=== PATIENT | male | born 1945 | race Two or more races ===

== ENCOUNTER 2024-05-18 16:36 | Inpatient (IN) | payer OTHER, MEDICAID ==
[~2024-05-18] VITALS: Ht 172.7 cm; Wt 65.6 kg
--- NOTE | 2024-05-18 17:20 | ED.PDOC ---
History of Present Illness HPI Comments This is a 78-year-old male who comes to the ED with chief complaint of generalized weakness. Patient is a poor historian as well as his nephew, no past medical history or surgical history. They state that the patient has been experiencing generalized weakness for the last three weeks, it has been worsening, it was associated with moderate to severe abdominal pain most prominent on the right upper quadrant, which radiates diffusely to all the other quadrants, it is colicky, on also associated with nausea, low appetite, poor fluid intake. Patient currently denies any chest pain, shortness of breath, dizziness, urinary symptoms, edema. Chief Complaint: General Weakness Time Seen by MD: 16:38 Reviewed Notes: Nurses Notes Allergies: Coded Allergies: NO KNOWN ALLERGIES (Unverified , 05/18/24) Information Source: Patient, Relative (Sibling) Mode of Arrival: Ambulatory Severity: Severe Timing: Weeks Duration: Since onset Past Medical History PAST MEDICAL HISTORY: Denies Surgical History: Denies all surgeries Family History Family History: Reviewed,noncontributory to illness Social History Smoker: Non-Smoker Alcohol: Denies ETOH Use Drugs: Denies Drug Use Lives In: Home Constitutional: reports: fatigue, malaise, weakness; denies: chills, diaphoresis, fever, sweats, others EENTM: denies: blurred vision, double vision, ear bleeding, ear discharge, ear drainage, ear pain, ear ringing, eye pain, eye redness, hearing loss, mouth pain, mouth swelling, nasal discharge, nose bleeding, nose congestion, nose pain, photophobia, tearing, throat pain, throat swelling, voice changes, others Respiratory: denies: cough, hemoptysis, orthopnea, SOB at rest, shortness of breath, SOB with excertion, stridor, wheezing, others Cardiovascular: denies: chest pain, dizzy spells, diaphoresis, Dyspnea on exertion, edema, irregular heart beat, left arm pain, lightheadedness, palpitations, PND, syncope, others Gastrointestinal: reports: abdomen distended, abdominal pain, nausea, poor appetite, poor fluid intake; denies: blood streaked bowels, constipated, diarrhea, dysphagia, difficulty swallowing, hematemesis, melena, rectal bleeding, rectal pain, vomiting, others Genitourinary: denies: burning, dysuria, flank pain, frequency, hematuria, incontinence, penile discharge, penile sore, pain, testicle pain, testicle swelling, urgency, others Neurological: reports: weakness; denies: dizziness, fainting, headache, left sided numbness, left sided weakness, numbness, paresthesia, pre-existing deficit, right sided numbness, right sided weakness, seizure, speech problems, tingling, tremors, others Musculoskeletal: denies: back pain, gout, joint pain, joint swelling, muscle pain, muscle stiffness, neck pain, others Integumetry: reports: dryness; denies: bruises, change in color, change in hair/nails, laceration, lesions, lumps, rash, wounds, others Allergic/Immunocompromised: denies: Difficulty Healing, Frequent Infections, Hives, Itching, others Hematologic/Lymphatic: denies: anemia, blood clots, easy bleeding, easy bruising, swollen glands, others Endocrine: denies: excessive hunger, excessive sweating, excessive thirst, excessive urination, flushing, intolerance to cold, intolerance to heat, unexplained weight gain, unexplained weight loss, others Psychiatric: denies: anxiety, bipolar disorder, depression, hopeless, panic disorder, schizophrenia, sleepless, suicidal, others Physical Exam General Appearance: Normal, Severe Distress HEENT: Normal ENT Inspection, Pharynx Normal, TMs Normal Neck: Full Range of Motion, Non-Tender, Normal, Normal Inspection Respiratory: Chest Non-Tender, Lungs Clear, No Accessory Muscle Use, No Respiratory Distress, Normal Breath Sounds Cardiovascular: No Edema, No JVD, No Murmur, No Gallop, Normal Peripheral Pulses, Regular Rate/Rhythm Breast Exam: Deferred Gastrointestinal: Abnormal Bowel Sounds, Diffuse, Distended, Rebound, RUQ, Tenderness Genitalia: Deferred Pelvic: Deferred Rectal: Deferred Extremities: No calf tenderness, Normal capillary refill, Normal inspection, Normal range of motion, Non-tender, No pedal edema Neurologic: Disoriented, No Motor Deficits Cerebellar Function: NOT DONE Reflexes: NOT DONE Skin: Dry, Pallor, Warm Lymphatic: No Adenopathy Was a procedure done? Was a procedure done?: No Differential Dx Considerations may include: Sepsis, UTI, cholecystitis, diverticular disease, gastritis, PUD, gastroenteritis, electrolyte imbalance, hypovolemia X-Ray, Labs, Meds, VS Vital Signs Date Time Temp Pulse Resp B/P (MAP) Pulse Ox O2 Delivery O2 Flow Rate FiO2 05/18/24 18:10 75 20 96 Nasal Cannula* 2 28 05/18/24 17:40 97.1 72 20 117/55 (75) 97 97.1 05/18/24 17:17 67 05/18/24 17:00 82 05/18/24 16:50 98.7 82 20 90/50 (63) 95 Lab Test 05/18/24 18:54 05/18/24 17:31 05/18/24 16:44 Range/Units Hepatitis A IgM Antibody Pending Hepatitis B Surface Antigen Pending Hepatitis B Core IgM Antibody Pending Hepatitis C Antibody Pending White Blood Count 9.3 4.4-10.8 10^3/uL Red Blood Count 5.80 4.5-5.90 10^6/uL Hemoglobin 17.2 13.5-17.5 g/dL Hematocrit 51.1 41.0-53.0 % Mean Corpuscular Volume 88.1 80.0-100.0 fL Mean Corpuscular Hemoglobin 29.7 28.0-32.0 pg Mean Corpuscular Hemoglobin Concent 33.8 32.0-36.0 g/dL Red Cell Distribution Width 21.5 H 11.8-14.3 % Platelet Count 122 L 140-450 10^3/uL Mean Platelet Volume 8.2 6.9-10.8 fL Neutrophils (%) (Auto) 37.0-80.0 % Lymphocytes (%) (Auto) 10.0-50.0 % Monocytes (%) (Auto) 0.0-12.0 % Basophils (%) (Auto) 0.0-2.0 % Neutrophils # (Auto) 1.6-8.6 10 ^3/uL Lymphocytes # (Auto) 0.4-5.4 10 ^3/uL Monocytes # (Auto) 0-1.3 10 ^3/uL Differential Total Cells Counted 100.0 100 Neutrophils % (Manual) 82 H 37.0-80.0 Band Neutrophils % (Manual) 4 Lymphocytes % (Manual) 9 L 10.0-50.0 Monocytes % (Manual) 4 0-12 Eosinophils % (Manual) 0 0-7 Basophils % (Manual) 0 0.0-2.0 Metamyelocytes % (manual) 1 Myelocytes % (Manual) 0 Promyelocytes % (Manual) 0 Blast Cells % (Manual) 0 Nucleated Red Blood Cells 2.0 % Reactive Lymphocytes 0 Platelet Estimate Decreased Anisocytosis (manual) Slight Sodium Level 135 L 136-145 mmol/L Potassium Level 5.0 3.5-5.1 mmol/L Chloride Level 101 98-107 mmol/L Carbon Dioxide Level 23 20-31 mmol/L Anion Gap 11 5-15 Blood Urea Nitrogen 39 H 9-23 mg/dL Creatinine 0.95 0.700-1.30 mg/dL Glomerular Filtration Rate Calc 82 >90 mL/min BUN/Creatinine Ratio 41.1 H 10.0-20.0 Serum Glucose 87 74-106 mg/dL Lactic Acid Level 4.5 *H 0.4-2.0 mmol/L Calcium Level 10.7 H 8.7-10.4 mg/dL Magnesium Level 2.6 1.6-2.6 mg/dL Total Bilirubin 12.7 H 0.2-1.0 mg/dL Direct Bilirubin Pending Aspartate Amino Transferase (AST) 686 H 13-40 U/L Alanine Aminotransferase (ALT) 256 H 7-40 U/L Alkaline Phosphatase 925 H 46-116 U/L Troponin I High Sensitivity 20 </=54 ng/L B-Type Natriuretic Peptide 70.04 0-100 pg/mL Total Protein 6.7 5.7-8.2 g/dL Albumin 3.2 3.2-4.8 g/dL POC Glucose 90 70-106 mg/dl Current Medications Medications (Trade) Dose Ordered Sig/Alessia Route Start Time Stop Time Status Last Admin Ondansetron HCl (Zofran) 4 mg ONCE ONCE IV 05/18/24 17:15 05/18/24 17:16 DC 05/18/24 17:29 Sodium Chloride 1,000 ml @ 150 mls/hr Q6H40M ONCE IV 05/18/24 17:15 05/18/24 23:54 05/18/24 17:29 Pantoprazole Sodium (Protonix) 40 mg ONCE ONCE IV 05/18/24 17:15 05/18/24 17:16 DC 05/18/24 17:29 Sodium Chloride 1,000 ml @ 1,000 mls/hr Q1H ONCE IV 05/18/24 18:45 05/18/24 19:44 05/18/24 18:49 Piperacillin Sod/ Tazobactam Sod 100 ml @ 100 mls/hr ONCE ONCE IV 05/18/24 18:45 05/18/24 19:44 05/18/24 18:58 On my initial examination, patient appears in severe distress due to abdominal pain, he was sitting in a wheelchair, appeared lightheaded, his blood pressure was on the lower side at 96/55 with a map of 65, heart rate was 82, temperature was 98.7, and he is saturating at 95% on room air. Patient continued to complain about severe abdominal pain and nausea. We will ordered CBC, CMP, magnesium, UA, lactic acid, troponins, EKG, chest x-ray, CT of the abdomen, we will also prescribed IV fluids as NS 30 mL/kg bolus, Zofran IV, Protonix IV, we will continue to reassess. Patient's CT abdomen revealed numerous hypodense lesions in the liver, possible metastasis, he also had hyperbilirubinemia of 13, lactic acidosis, transaminitis, order liver ultrasound, IV fluid bolus, Zosyn IV, patient was admitted for further management. Images Reviewed?: Images reviewed and evaluated by me Time of 1ST Reevaluation: 17:10 Reevaluation 1ST: Unchanged Patient Education/Counseling: Diagnosis, Treatment Family Education/Counseling: Diagnosis, Treatment Departure 1 Departure Time of Disposition: 19:19 Impression: Primary Impression: Liver disease Additional Impressions: Liver masses Hypovolemia Lactic acidosis Sepsis Disposition: 09 ADMITTED INPATIENT Condition: Guarded Critical Care Note Critical Care Time?: No Stability Stability form required: No Heart Score Heart Score: Heart Score Response (Comments) Value History Moderate Suspicious 1 EKG Repolarization Disturb 1 Age >65 2 Risk Factors No known risk factors 0 Troponin Normal limit 0 Total 4 DEBRA GARCIA RESIDENT May 18, 2024 17:20
[2024-05-18] MEDS: ONDANSETRON HCL 4 MG/2 ML VIAL IV ONE (17:29)
[2024-05-18] MEDS: PANTOPRAZOLE 40 MG/10 ML VIAL INJ IV ONE (17:29)
[2024-05-18] MEDS: SODIUM CHLORIDE 0.9% 1,000 ML IV ONE ×2 (17:29→18:49)
--- NOTE | 2024-05-18 17:48 | DVH ---
CHEST RADIOGRAPH Indication:sob Technique: Single frontal view of the chest was obtained Comparison: None FINDINGS: Lines and Tubes: None Lungs: No focal consolidation. Pleura: Trace left-sided pleural effusion. No pneumothorax. Cardiomediastinal contours: Unremarkable Bones: No acute osseous abnormality. Surgical clips projected over the left hilum. IMPRESSION: No acute cardiopulmonary disease. Trace left-sided pleural effusion.
[2024-05-18 18:10] VITALS: PULSE 75; RESP 20; O2SAT 96
[2024-05-18 18:12] LABS: Hematocrit 51.1 % (41.0-53.0); Hemoglobin 17.2 g/dL (13.5-17.5); Mean Corpuscular Hemoglobin 29.7 pg (28.0-32.0); Mean Corpuscular Hgb Conc. 33.8 g/dL (32.0-36.0); Mean Corpuscular Volume 88.1 fL (80.0-100.0); Platelet Count (auto) 122 10^3/uL (140-450); White Blood Cell 9.3 10^3/uL (4.4-10.8)
[2024-05-18 18:17] LABS: Alanine Aminotransferase 256 U/L (7-40); Albumin 3.2 g/dL (3.2-4.8); Alkaline Phosphatase 925 U/L (46-116); Anion Gap 11 (5-15); Aspartate Aminotransferase 686 U/L (13-40); Bilirubin, Total 12.7 mg/dL (0.2-1.0); Blood Urea Nitrogen 39 mg/dL (9-23); Calcium 10.7 mg/dL (8.7-10.4); Carbon Dioxide 23 mmol/L (20-31); Chloride 101 mmol/L (98-107); Glucose 87 mg/dL (74-106); Magnesium 2.6 mg/dL (1.6-2.6); Red Cell Distribution Width 21.5 % (11.8-14.3); Sodium 135 mmol/L (136-145)
[2024-05-18 18:18] LABS: Basophils % (manual) 0 (0.0-2.0); Blast Cells 0; Eosinophils % (manual) 0 (0-7); Myelocytes % 0; Promyelocytes % 0; Reactive Lymphocytes 0; Total Protein 6.7 g/dL (5.7-8.2)
[2024-05-18 18:23] LABS: BUN/Creatinine Ratio 41.1 (10.0-20.0)
[2024-05-18 18:31] LABS: Lactic Acid w/Reflex 4.5 mmol/L (0.4-2.0)
--- NOTE | 2024-05-18 18:42 | DVH ---
Exam: CT CT AB PEL WO CON-NO ORAL OR IV History: abdominal pain, RUQ pain, diffuse tenderness Comparison Study: None available at time of dictation. Technique: Multidetector spiral CT of the abdomen was performed from lung bases to pubic symphysis. Imaging was performed without IV contrast. Axial, coronal and sagittal multiplanar reformats were ob tained from the axial data set by the technologist. Radiation Dose : 1. Abdomen/Pelvis: CTDIvol 7 mGy, DLP 384 mGy*cm. Findings: Evaluation of solid organs is limited due to lack of intravenous contrast use. Lung Bases: No acute or significant lung base finding. Normal heart size. No pleural or pericardial effusion. Liver: Enlarged liver measuring 20 cm with several scattered hypoattenuation. Gallbladder and Biliary Tree: Unremarkable Spleen: Unremarkable Pancreas: The pancreas is grossly normal in appearance. Adrenal Glands: Unremarkable Kidneys: Kidneys are grossly normal without calculi or hydronephrosis. 1 cm hypodensity in the left k idney. Bladder: Grossly unremarkable for degree of distention. Bowel: The stomach is grossly normal in appearance. Small bowel and colon are normal in caliber and d istribution. The appendix is not visualized; however, no secondary findings of acute appendicitis id entified. Ascites: Absent Lymphadenopathy: No mesenteric, retroperitoneal or periportal lymphadenopathy. Abdominal Wall and Mesentery: Unremarkable. Vasculature: The visualized abdominal aorta is normal in size and caliber. Evaluation of abdominal a nd pelvic vessels is limited due to lack of intravenous contrast. Heavy vascular calcification. Pelvic Organs: Mild prostatomegaly. Musculoskeletal: No aggressive focal bony lesions, acute fractures or dislocation. IMPRESSION: Limited evaluation without IV contrast. Innumerable scattered hypodense lesions throughout the liver concerning for metastatic disease of unclear etiology. Consider further evaluation with PET-CT. Corre lation with history is also recommended. 1 cm left renal hypodensity.
[2024-05-18] MEDS: PIPERACILLIN-TAZOB 3.375GM 100 ML IV ONE (18:58)
[2024-05-18 19:09] LABS: Band Neutrophils % (manual) 4; Lymphocytes % (manual) 9 (10.0-50.0)
[2024-05-18 19:10] LABS: Metamyelocytes % 1; Monocytes % (manual) 4 (0-12); Platelet Estimate Decreased
[2024-05-18 19:11] LABS: Anisocytosis Slight
[2024-05-18 19:30] VITALS: O2SAT 95
[2024-05-18] MEDS ORDERED: ONDANSETRON HCL 4 MG/2 ML VIAL IV PRN (20:15)
[2024-05-18] MEDS ORDERED: ACETAMINOPHEN 325 MG TAB PO PRN (20:15)
--- NOTE | 2024-05-18 20:34 | DVH ---
INDICATION: transaminitis TECHNIQUE: Multiple real-time sonographic images were obtained of the right upper quadrant. COMPARISON: None FINDINGS: Heterogeneous echotexture of the liver. No obvious focal lesions . Hepatopetal flow is note d . The liver measures 20 cm craniocaudal. no intrahepatic or extrahepatic ductal dilatation. The co mmon duct measures 0.8 cm. The gallbladder is without evidence of stone .. There is biliary sludge The gallbladder wall measur es 1.0 cm and is within normal limits. The right kidney measures 4 cm. The right kidney is normal in contour, size, and shape. The echogen icity is normal. There is no hydronephrosis. The pancreas is not well visualized due to overlying bowel gas. IMPRESSION: Heterogeneous liver echotexture which may be from hepatic steatosis versus medical liver disease. Dis tended gallbladder demonstrating layering sludge and significant wall thickening. This can be seen wi th medical hepatic disease such as hepatitis. Clinical correlation is advised.
[2024-05-18 21:05] LABS: Urine Bacteria None Seen /hpf (None Seen)
[2024-05-18 21:12] LABS: INR 1.35 (0.9-1.15)
[2024-05-18 21:33] LABS: Amphetamine Screen, Urine Neg (NEGATIVE); Barbiturate Scree,Urine Neg (NEGATIVE); Benzodiazephine Screen, Urine Neg (NEGATIVE); Cocaine Screen, Urine Neg (NEGATIVE)
[2024-05-18 21:34] LABS: Cannabinoid Screen, Urine Neg (NEGATIVE); Opiate Scree,Urine Neg (NEGATIVE); Phencyclidine Screen, Urine Neg (NEGATIVE)
[2024-05-18 21:55] LABS: Urine Blood Negative /uL (Negative); Urine Clarity Turbid (Clear); Urine Color Dark-Yellow (Yellow); Urine Mucus FEW (None Seen); Urine Protein, UAD TRACE (Negative); Urine Specific Gravity 1.022 (1.001-1.035); Urine Urobilinogen 2 mg/dL (Negative); Urine WBC 1 /hpf (0 - 3); Urine pH 5.5 (5.0-9.0)
[2024-05-19] VITALS (8 sets, daily range): BP systolic 101–149; BP diastolic 54–74; PULSE 60–86; RESP 18–19; TEMP 97.4–97.8; O2SAT 96–99
--- NOTE | 2024-05-19 00:52 | DVHHP2 ---
Admitting Diagnosis: Liver Lesions, Transaminitis, elevated bilirubin History of Present Illness History Source: RN Notes, Notes Exam Limitations: Other (poor historian) HPI Mr. Curtis Castañeda is a 78-year-old male who presents with a chief complaint of generalized weakness. Patient is a poor historian as well as his nephew, no past medical history or surgical history. They state that the patient has been experiencing generalized weakness for the last three weeks, it has been worsening, it was associated with moderate to severe abdominal pain most prominent on the right upper quadrant, which radiates diffusely to all the other quadrants, it is colicky, on also associated with nausea, low appetite, poor fluid intake. Patient CT abdomen and pelvis without contrast resulted: Limited evaluation without IV contrast. Innumerable scattered hypodense lesions throughout the liver concerning for metastatic disease of unclear etiology. Consider further evaluation with PET-CT. Correlation with history is also recommended. 1 cm left renal hypodensity. Patient admitted for further evaluation. Home Meds Reported Medications Atorvastatin Calcium (Lipitor) 20 Mg Tab, 1 TAB PO DAILY, #90 TAB 1 Refill 05/19/24 Levothyroxine Sodium (Levothyroxine Sodium) 125 Mcg Tab, 125 MCG PO QAM for 30 Days, MCG 05/19/24 Past Medical History Cardiac: No pertinent Hx Pulmonary: No pertinent Hx Central Nervous System: No pertinent Hx GI: No pertinent Hx Hemotology/Oncology: No pertinent Hx Hepatobiliary: No pertinent Hx Psychiatric: No pertinent Hx Musculoskeletal: No pertinent Hx Rheumotologic: No pertinent Hx Infectious Disease: No peritnent Hx ENT: No pertinent Hx Renal/: No pertinent Hx Endocrine: No pertinent Hx Dermatology: No pertinent Hx Others none reported, poor historian Past Surgical History: No pertinent Hx Smoker: <1 pack per day Alocohol: None Drugs: None Lives with: With family Domestic Violence: Neg Review of Systems Constitutional: Weakness (generalized), Other (poor appetite ) Ears, Nose, & Throat: No symptom reported Eyes: No symptom reported Pulmonary/Respiratory: No symptom reported Cardiovascular: No symptom reported Gastrointestinal: No symptom reported Genitourinary: No symptom reported Musculoskeletal: No symptom reported Skin: No symptom reported Psychiatric: No symptom reported Endocrine: No symptom reported Hemotologic/Lymphatic: No symptom reported H&P Exam Vital Signs Vital Signs Date Time Temp Pulse Resp B/P (MAP) Pulse Ox O2 Delivery O2 Flow Rate FiO2 05/18/24 21:00 78 18 112/56 (74) 97 05/18/24 19:30 Nasal Cannula* 2 28 05/18/24 17:40 97.1 97.1 General Appeara: Normal Appearance, Thin Head Exam: Normal inspection Neck Exam: Normal inspection, Non-tender, Normal alignment Eye Exam: bilateral eye Normal inspection, bilateral eye PERRL, bilateral eye EOMI Ear Exam: bilateral ear Auricle normal Nasal Exam: Normal inspection Mouth: Normal Inspection Pulmonary/Respiratory: Normal inspection, Normal breath sounds, Chest non- tender, Lungs clear Cardiovascular/Chest: Normal inspection, Regular rate, Normal Rhythm Peripheral Pulses: 2+ dorsalis pedis (R), 2+ dorsalis pedis (L), 2+ Radial (R), 2+ Radial (L) Abdominal Exam: Normal bowel sounds, Soft, No tenderness Rectal 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 Exam: Normal hearing, Normal speech, PERRL Neuro/Mental St: Alert, Oriented Appearance: Appropriate appearance, Appropriate insight Eye contact/ Speech: Cooperative, Good eye contact, Normal speech, Avoids eye contact Thoughts/Psych: Normal thought pattern Skin Exam: Normal inspection, Normal color, Warm/dry Labs/Xrays Labs Test 05/18/24 21:31 05/18/24 21:02 05/18/24 19:54 05/18/24 17:31 Range/Units Troponin I High Sensitivity 22 </=54 ng/L Urine Color Dark-yellow Yellow Urine Clarity Turbid H Clear Urine pH 5.5 5.0-9.0 Urine Specific [place] 1.022 1.001-1.035 Urine Protein Trace H Negative Urine Ketones Trace Negative Urine Blood Negative Negative /uL Urine Nitrite Negative Negative Urine Bilirubin 2+ Negative Urine Urobilinogen 2 H Negative mg/dL Urine Leukocyte Esterase Negative Negative /uL Urine RBC 1 0 - 3 /hpf Urine WBC 1 0 - 3 /hpf Urine Squamous Epithelial Cells None seen <5 /hpf Urine Bacteria None seen None Seen /hpf Urine Mucus Few None Seen Urine Glucose Normal Normal mg/dL Urine Opiates Screen Neg NEGATIVE Urine Fentanyl Screen Neg NEGATIVE Urine Barbiturates Screen Neg NEGATIVE Urine Phencyclidine Screen Neg NEGATIVE Urine Amphetamines Screen Neg NEGATIVE Urine Benzodiazepines Screen Neg NEGATIVE Urine Cocaine Screen Neg NEGATIVE Urine Cannabinoids Screen Neg NEGATIVE Lactic Acid Level 4.0 *H 0.4-2.0 mmol/L White Blood Count 9.3 4.4-10.8 10^3/uL Red Blood Count 5.80 4.5-5.90 10^6/uL Hemoglobin 17.2 13.5-17.5 g/dL Hematocrit 51.1 41.0-53.0 % Mean Corpuscular Volume 88.1 80.0-100.0 fL Mean Corpuscular Hemoglobin 29.7 28.0-32.0 pg Mean Corpuscular Hemoglobin Concent 33.8 32.0-36.0 g/dL Red Cell Distribution Width 21.5 H 11.8-14.3 % Platelet Count 122 L 140-450 10^3/uL Mean Platelet Volume 8.2 6.9-10.8 fL Neutrophils (%) (Auto) 37.0-80.0 % Lymphocytes (%) (Auto) 10.0-50.0 % Monocytes (%) (Auto) 0.0-12.0 % Basophils (%) (Auto) 0.0-2.0 % Neutrophils # (Auto) 1.6-8.6 10 ^3/uL Lymphocytes # (Auto) 0.4-5.4 10 ^3/uL Monocytes # (Auto) 0-1.3 10 ^3/uL Differential Total Cells Counted 100.0 100 Neutrophils % (Manual) 82 H 37.0-80.0 Band Neutrophils % (Manual) 4 Lymphocytes % (Manual) 9 L 10.0-50.0 Monocytes % (Manual) 4 0-12 Eosinophils % (Manual) 0 0-7 Basophils % (Manual) 0 0.0-2.0 Metamyelocytes % (manual) 1 Myelocytes % (Manual) 0 Promyelocytes % (Manual) 0 Blast Cells % (Manual) 0 Nucleated Red Blood Cells 2.0 % Reactive Lymphocytes 0 Platelet Estimate Decreased Anisocytosis (manual) Slight Prothrombin Time 14.0 H 9.3-11.8 sec Prothrombin Time INR 1.35 H 0.9-1.15 Sodium Level 135 L 136-145 mmol/L Potassium Level 5.0 3.5-5.1 mmol/L Chloride Level 101 98-107 mmol/L Carbon Dioxide Level 23 20-31 mmol/L Anion Gap 11 5-15 Blood Urea Nitrogen 39 H 9-23 mg/dL Creatinine 0.95 0.700-1.30 mg/dL Glomerular Filtration Rate Calc 82 >90 mL/min BUN/Creatinine Ratio 41.1 H 10.0-20.0 Serum Glucose 87 74-106 mg/dL Calcium Level 10.7 H 8.7-10.4 mg/dL Magnesium Level 2.6 1.6-2.6 mg/dL Total Bilirubin 12.7 H 0.2-1.0 mg/dL Direct Bilirubin 9.0 H <0.3 mg/dL Aspartate Amino Transferase (AST) 686 H 13-40 U/L Alanine Aminotransferase (ALT) 256 H 7-40 U/L Alkaline Phosphatase 925 H 46-116 U/L B-Type Natriuretic Peptide 70.04 0-100 pg/mL Total Protein 6.7 5.7-8.2 g/dL Albumin 3.2 3.2-4.8 g/dL Test 05/18/24 16:44 Range/Units POC Glucose 90 70-106 mg/dl Assessment/Plan Problem List: (1) Liver masses (2) Transaminitis (3) Liver disease (4) Lactic acidosis Plan 78 yo male with no reported medical history presents with generalized weakness, abdominal pain, poor appetite, nausea. Patient found to have 1. Liver masses 2. acute transaminitis 3. hyperbilirubinemia 4. Lactic acidosis Admit Telemetry GI consultation Oncology consultation Interventional Radiology consultation liver biopsy MRCP IV fluids NS GI ppx Protonix DVT ppx SCD's Blood cultures x2, urine culture Lactic acid level , CMP, CBC Discussed all above with patient who verbalizes agreement and understanding of care plan. All questions were answered. Discussed assessment and care plan with supervising MD Dr. De La Vega. Plan discussed with: Patient, Other Code Visit Code Visit Total Time (mins): 45 Additional Comments Additional Comments Additional Comments Patient's chart is reviewed and discussed with the nurse practitioner. I agree with the nurse practitioner's evaluation, documentation, assessment and care plan as outlined. GLYNN GALE May 19, 2024 00:52 ARABELLA NOE MD May 19, 2024 12:12
[2024-05-19] MEDS: SODIUM CHLORIDE 0.9% 1,000 ML IV SCH (01:03)
[2024-05-19] MEDS: HYDROcodone-ACET 5/325MG TAB PO PRN (01:17)
[2024-05-19] MEDS ORDERED: LEVO125T7 PO (03:48)
[2024-05-19] MEDS ORDERED: ATOR20TA PO (03:48)
[2024-05-19 05:46] LABS: Hematocrit 47.1 % (41.0-53.0); Hemoglobin 15.5 g/dL (13.5-17.5); Mean Corpuscular Hemoglobin 29.7 pg (28.0-32.0); Platelet Count (auto) 100 10^3/uL (140-450); Red Blood Cells 5.23 10^6/uL (4.5-5.90); White Blood Cell 9.6 10^3/uL (4.4-10.8)
[2024-05-19 06:00] LABS: Red Cell Distribution Width 22.1 % (11.8-14.3)
[2024-05-19 06:02] LABS: Basophils % (manual) 0 (0.0-2.0); Blast Cells 0; Eosinophils % (manual) 0 (0-7); Metamyelocytes % 0; Myelocytes % 0; Promyelocytes % 0; Reactive Lymphocytes 0
[2024-05-19 06:06] LABS: Alanine Aminotransferase 215 U/L (7-40); Albumin 2.8 g/dL (3.2-4.8); Alkaline Phosphatase 747 U/L (46-116); Anion Gap 8 (5-15); Aspartate Aminotransferase 594 U/L (13-40); Bilirubin, Total 10.9 mg/dL (0.2-1.0); Blood Urea Nitrogen 30 mg/dL (9-23); Calcium 9.7 mg/dL (8.7-10.4); Carbon Dioxide 24 mmol/L (20-31); Chloride 104 mmol/L (98-107); Glucose 87 mg/dL (74-106); Potassium 5.4 mmol/L (3.5-5.1); Sodium 136 mmol/L (136-145); Total Protein 6.1 g/dL (5.7-8.2)
[2024-05-19 06:22] LABS: BUN/Creatinine Ratio 30.3 (10.0-20.0)
[2024-05-19 08:36] LABS: Band Neutrophils % (manual) 2; Lymphocytes % (manual) 13 (10.0-50.0); Monocytes % (manual) 8 (0-12)
[2024-05-19 08:37] LABS: Platelet Estimate Decreased
--- NOTE | 2024-05-19 09:09 | ECG ---
[facility] Test Date: 2024-05-18 Test Time: 17:00:37 Pat Name: KEATON ARIZA Department: ER Room: [facility]0T B Gender: M Baggage Handler: SUMMER : 1945 Requested By: DEBRA GAR Order Number: [id number] Reading MD: Eric Evans Measurements Intervals [place] Rate: 82 P: 68 ME: 149 QRS: 0 QRSD: 135 T: 89 QT: 402 QTc: 470 Interpretive Statements Sinus rhythm IVCD, consider atypical RBBB Baseline wander in lead(s) V2 Electronically Signed On 05-20-2024 14:55:43 PDT by Eric Evans Please click the below link to view image of tracing.
[2024-05-19] MEDS: MIDAZOLAM HCL 2MG/2ML 2ml VIAL (1mg/ml) IV ONE (09:15)
[2024-05-19] MEDS: fentaNYL CITRATE 100 MCG/2 ML VL IV ONE (09:15)
[2024-05-19] MEDS: LIDOCAINE 2%HCL (LOCAL ANESTH.) INJ 10ml MDV ONE (09:28)
[2024-05-19] MEDS: GELATIN 1 SPONGE SIZE 50 TOP ONE (09:31)
--- NOTE | 2024-05-19 09:34 | DVHINCON2 ---
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 He states that he had a lung cancer surgery around a year back from the left lung followed by no radiation or chemotherapy. He has a history of smoking a pack of cigarettes a day for many years. No alcohol or drugs. He is admitted with generalized weakness and has right upper abdominal pains with some feeling of nausea. No vomiting. Poor appetite. Has lost [address] of the abdomen pelvis without contrast showed innumerable scattered hypodense lesions throughout the liver concerning for metastatic disease of unclear etiology. Abdominal ultrasound showed hepatic steatosis/liver disease, distended gallbladder Ms. Significant wall thickening and sludge for white count 9.6 hemoglobin 15.5 platelets [id number] BUN 13 creatinine 0.9 total bili 10.9 direct bili nine alkaline phosphatase 747 AST 0.94 ALT 215 total protein 6.1 albumin 2.8 PT INR 1.35 He is waiting for the liver biopsy He is moving his bowels okay. No urinary discomfort. No fevers night sweats bruising or bleeding. Past Medical History Lung cancer Hypothyroidism Family History He thinks one of his sisters might have had some cancer Social History History of smoking a pack a day for many years No alcohol or drugs He lives with his nephew Allergies: Coded Allergies: NO KNOWN ALLERGIES (Unverified , 05/18/24) Home Meds Reported Medications Atorvastatin Calcium (Lipitor) 20 Mg Tab, 1 TAB PO DAILY, #90 TAB 1 Refill 05/19/24 Levothyroxine Sodium (Levothyroxine Sodium) 125 Mcg Tab, 125 MCG PO QAM for 30 Days, MCG 05/19/24 Current Medications Current Medications Medications (Trade) Dose Ordered Sig/Alessia Route PRN Reason Start Time Stop Time Status Last Admin Sodium Chloride 1,000 ml @ 75 mls/hr [id number] IV 05/18/24 20:15 05/19/24 01:03 Acetaminophen (Tylenol Tablet) 650 mg Q6HPRN PRN PO TEMP GREATER THAN 100.4 05/18/24 20:15 Acetaminophen/ Hydrocodone Bitart ([place] 5/325MG Tab) 1 tab Q6HPRN PRN PO PAIN SCALE 1 THRU 6 05/18/24 20:15 05/19/24 01:17 Morphine Sulfate 2 mg Q6HPRN PRN IV SEVERE PAIN (7-10 PAIN SCALE) 05/18/24 20:15 Ondansetron HCl (Zofran) 4 mg Q6HPRN PRN IV NAUSEA / VOMITING 05/18/24 20:15 Pantoprazole Sodium (Protonix) 40 mg DAILY IV 05/19/24 10:00 Vital Signs Vital Signs Date Time Temp Pulse Resp B/P (MAP) Pulse Ox O2 Delivery O2 Flow Rate FiO2 05/19/24 08:36 97.6 63 18 106/54 (71) 99 97.6 05/19/24 02:09 Nasal Cannula* 3 32 Physical Exam Moderately built and nourished, in no acute distress, alert and has some o rientation. The patient is jaundiced Head and neck: Unremarkable for any masses or neck nodes. No conjunctival or mucosal hemorrhage Lungs: Clear Cardiovascular: S1-S2 heard well Abdomen: No organomegaly, or ascites. Bowel sounds are present. Sensitive to touch in the right upper quadrant of the abdomen Extremities: No clubbing edema cyanosis or calf tenderness. Skin: Unremarkable for petechia purpura ecchymosis Lymphadenopathy: None Neurological exam: No focal deficit Labs/Diagnostic Data Labs Test 05/19/24 04:53 05/18/24 21:31 05/18/24 21:02 05/18/24 19:54 Range/Units White Blood Count 9.6 4.4-10.8 10^3/uL Red Blood Count 5.23 4.5-5.90 10^6/uL Hemoglobin 15.5 13.5-17.5 g/dL Hematocrit 47.1 41.0-53.0 % Mean Corpuscular Volume 90.0 80.0-100.0 fL Mean Corpuscular Hemoglobin 29.7 28.0-32.0 pg Mean Corpuscular Hemoglobin Concent 33.0 32.0-36.0 g/dL Red Cell Distribution Width 22.1 H 11.8-14.3 % Platelet Count 100 L 140-450 10^3/uL Mean Platelet Volume 7.8 6.9-10.8 fL Neutrophils (%) (Auto) 37.0-80.0 % Lymphocytes (%) (Auto) 10.0-50.0 % Monocytes (%) (Auto) 0.0-12.0 % Basophils (%) (Auto) 0.0-2.0 % Neutrophils # (Auto) 1.6-8.6 10 ^3/uL Lymphocytes # (Auto) 0.4-5.4 10 ^3/uL Monocytes # (Auto) 0-1.3 10 ^3/uL Differential Total Cells Counted 100.0 100 Neutrophils % (Manual) 77 37.0-80.0 Band Neutrophils % (Manual) 2 Lymphocytes % (Manual) 13 10.0-50.0 Monocytes % (Manual) 8 0-12 Eosinophils % (Manual) 0 0-7 Basophils % (Manual) 0 0.0-2.0 Metamyelocytes % (manual) 0 Myelocytes % (Manual) 0 Promyelocytes % (Manual) 0 Blast Cells % (Manual) 0 Reactive Lymphocytes 0 Platelet Estimate Decreased Sodium Level 136 136-145 mmol/L Potassium Level 5.4 H 3.5-5.1 mmol/L Chloride Level 104 98-107 mmol/L Carbon Dioxide Level 24 20-31 mmol/L Anion Gap 8 5-15 Blood Urea Nitrogen 30 H 9-23 mg/dL Creatinine 0.99 0.700-1.30 mg/dL Glomerular Filtration Rate Calc 78 >90 mL/min BUN/Creatinine Ratio 30.3 H 10.0-20.0 Serum Glucose 87 74-106 mg/dL Lactic Acid Level 3.0 *H 0.4-2.0 mmol/L Calcium Level 9.7 8.7-10.4 mg/dL Total Bilirubin 10.9 H 0.2-1.0 mg/dL Aspartate Amino Transferase (AST) 594 H 13-40 U/L Alanine Aminotransferase (ALT) 215 H 7-40 U/L Alkaline Phosphatase 747 H 46-116 U/L Total Protein 6.1 5.7-8.2 g/dL Albumin 2.8 L 3.2-4.8 g/dL Troponin I High Sensitivity 22 </=54 ng/L Urine Color Dark-yellow Yellow Urine Clarity Turbid H Clear Urine pH 5.5 5.0-9.0 Urine Specific [place] 1.022 1.001-1.035 Urine Protein Trace H Negative Urine Ketones Trace Negative Urine Blood Negative Negative /uL Urine Nitrite Negative Negative Urine Bilirubin 2+ Negative Urine Urobilinogen 2 H Negative mg/dL Urine Leukocyte Esterase Negative Negative /uL Urine RBC 1 0 - 3 /hpf Urine WBC 1 0 - 3 /hpf Urine Squamous Epithelial Cells None seen <5 /hpf Urine Bacteria None seen None Seen /hpf Urine Mucus Few None Seen Urine Glucose Normal Normal mg/dL Urine Opiates Screen Neg NEGATIVE Urine Fentanyl Screen Neg NEGATIVE Urine Barbiturates Screen Neg NEGATIVE Urine Phencyclidine Screen Neg NEGATIVE Urine Amphetamines Screen Neg NEGATIVE Urine Benzodiazepines Screen Neg NEGATIVE Urine Cocaine Screen Neg NEGATIVE Urine Cannabinoids Screen Neg NEGATIVE Test 05/18/24 17:31 05/18/24 16:44 Range/Units Nucleated Red Blood Cells 2.0 % Anisocytosis (manual) Slight Prothrombin Time 14.0 H 9.3-11.8 sec Prothrombin Time INR 1.35 H 0.9-1.15 Magnesium Level 2.6 1.6-2.6 mg/dL Direct Bilirubin 9.0 H <0.3 mg/dL B-Type Natriuretic Peptide 70.04 0-100 pg/mL POC Glucose 90 70-106 mg/dl Assessment 1. Multiple lesions in the liver with hepatic insufficiency with total bili and direct bilirubin high indicating obstructive hepatopathy also. Rule out metastatic disease. The patient does give a history of lung cancer and had surgery in the left lung sometime back without any adjuvant radiation or chemotherapy. (the patient is a poor historian) 2. Hypothyroidism Plan/Recommendation Will do a CT of the chest with contrast MRI of the abdomen and pelvis with and without contrast CEA, CA 19-9, alpha-fetoprotein IR to do the liver biopsy Plan discussed with: Patient LINDADRAKE MD May 19, 2024 09:34
[2024-05-19] MEDS ORDERED: IOHEXOL 300 MG/ML 100ML BOTTLE IJ ONE (09:45)
--- NOTE | 2024-05-19 10:11 | DVH ---
Procedure: CT CHEST WITH CONTRAST Reason for study/Clinical History: h/o lung cancer Comparison Study: None available at time of dictation. Exam Date: 05/19/2024 09:39 AM Radiation Dose Information: CT Dose: CTDI volume is 13.27 mGy. Dose-length product is 552.35 mGy*cm TECHNIQUE: After the uneventful administration of intravenous contrast intravenously, CT imaging was performed through the chest. Coronal and sagittal reformations were performed by the technologist. 10 0 cc of Omnipaque 300 contrast was injected intravenously. All CT scans at this medical facility are performed using dose modulation techniques as appropriate t o a performed exam including the following:Automated exposure control was utilized; adjustment of the MA and/or KV according to patient size; and use of iterative reconstruction technique. FINDINGS: There are postsurgical changes related to left upper lobe resection. There are centrilobular emphysem atous changes with upper lobe predominance. There is small right pleural effusion with likely atelect asis in the posterior right lung base. There is no suspicious appearing pulmonary nodule or mass. There is no evidence of a mediastinal mass or lymphadenopathy. There is no hilar or axillary lymphade nopathy. The heart size is within normal limits. There is no significant pericardial effusion. There are numerous hypodense lesions throughout the liver. Hepatic metastatic lesions are not exclud ed. There are also subtle hypodense lesions within the spleen. The adrenal glands appear within norm al limits. There is no acute osseous abnormality. There is no suspicious appearing osseous lesion. There are c hronic healed left rib fracture deformities. IMPRESSION: 1. Postsurgical changes related to left upper lobe resection. There is no evidence of tumor recurrenc e. There is no metastatic thoracic lymphadenopathy. 2. There is small right pleural effusion with likely atelectasis in the posterior right lung base. 3. Numerous hypodense lesions throughout the liver. There are also subtle hypodense lesions within t he spleen. Metastatic lesions are not excluded. HS:Y
--- NOTE | 2024-05-19 10:49 | DVH ---
US US GUIDANCE FOR NEEDLE PLACEME, HISTORY: NON TARGATED LIVER BX PROCEDURE: Informed consent was obtained. The patient was placed supine on the CT scanner, and limite d US was performed of the liver. IV sedation was administered. The skin over the area of interest was prepped with chlorhexidine which was allowed to dry and draped in the usual sterile fashion. Time ou t was performed. 2% local lidocaine was administered. With intermittent US guidance, Temno 17 gauge o uter coaxial guiding needle was advanced into the liver mass. Single core biopsies were obtained usin g Temno 18 gauge inner core biopsy needle. The specimens were placed in formalin and sent to [facility] for analysis. The needle was withdrawn , and the visceral tract embolized with gelfoam pledgets. Po st procedural images were obtained. No immediate complication was identified. SEDATION: Dr. Hilary Hernandez was personally responsible for the administration of moderate sedation during the procedure performed, including the use of an independent trained observer who had no other duties during the procedure. The drugs utilized were IV fentanyl and versed (see nursing log for details). The total time of supervision by the attending physician was approximately 30 minutes. FINDINGS: Hypoechoic irregular liver lesion adjacent to the gallbladder. Intra-procedural images demo nstrate biopsy needle within the targeted lesion. Post procedural images do not demonstrate any signi ficant hemorrhage. IMPRESSION: US guided hypoechoic irregular liver lesion adjacent to the gallbladder biopsy. Pathology results crissy olivares.
[2024-05-19] MEDS: PANTOPRAZOLE 40 MG/10 ML VIAL INJ IV SCH (11:05)
[2024-05-19 13:49] LABS: Lactic Acid w/Reflex 3.1 mmol/L (0.4-2.0)
[2024-05-20] VITALS (19 sets, daily range): BP systolic 103–132; BP diastolic 51–73; PULSE 64–101; RESP 16–22; TEMP 97.4–98.2; O2SAT 93–100
[2024-05-20] MEDS: FUROSEMIDE 40 MG/4 ML VIAL IV ONE (02:00)
[2024-05-20 04:34] LABS: Base Excess -6.1 mmol/L (-2.0-3.0)
[2024-05-20] MEDS: FUROSEMIDE 20 MG/2 ML VIAL IV ONE (04:40)
--- NOTE | 2024-05-20 06:13 | DVH ---
CHEST RADIOGRAPH Indication:Short of breath Technique: Single frontal view of the chest was obtained Comparison: XY CHEST PORTABLE on DOS: 05/18/24 FINDINGS: Lines and Tubes: None Lungs: Right lower lung zone opacities. Pleura: No effusion. No pneumothorax. Cardiomediastinal contours: Unremarkable Bones: No acute osseous abnormality. IMPRESSION: 1. Right lower lung zone opacities which may reflect atelectasis or pneumonia. This is new since prio r chest radiograph from 05/18/2024.
[2024-05-20] MEDS: IPRATROPIUM BROM 0.5 MG/2.5ML INH SOL NEB SCH (07:02)
[2024-05-20 07:31] LABS: Alanine Aminotransferase 229 U/L (7-40); Albumin 2.9 g/dL (3.2-4.8); Alkaline Phosphatase 754 U/L (46-116); Anion Gap 14 (5-15); Aspartate Aminotransferase 615 U/L (13-40); Calcium 9.7 mg/dL (8.7-10.4); Carbon Dioxide 20 mmol/L (20-31); Chloride 101 mmol/L (98-107); Glucose 149 mg/dL (74-106); Sodium 135 mmol/L (136-145)
[2024-05-20 07:32] LABS: Bilirubin, Total 12.3 mg/dL (0.2-1.0); Total Protein 6.4 g/dL (5.7-8.2)
[2024-05-20 07:52] LABS: Blood Urea Nitrogen 32 mg/dL (9-23)
[2024-05-20 08:26] LABS: Chloride 103 mmol/L (98-107); Sodium 136 mmol/L (136-145)
[2024-05-20 08:27] LABS: Anion Gap 14 (5-15); Calcium 9.5 mg/dL (8.7-10.4); Carbon Dioxide 19 mmol/L (20-31)
[2024-05-20 08:32] LABS: Blood Urea Nitrogen 33 mg/dL (9-23); Glucose 150 mg/dL (74-106)
[2024-05-20 08:41] LABS: BUN/Creatinine Ratio 33.7 (10.0-20.0)
[2024-05-20] MEDS ORDERED: GADOTERATE MEG 10 MMOL/20ml INJ (0.5MMOL/ml) IV ONE (09:14)
[2024-05-20] MEDS: methylPREDNISolone SOD SUCC 40 MG/ML VL IV SCH (09:19)
[2024-05-20 09:29] LABS: Hepatitis B Surface Antigen Negative (Negative)
[2024-05-20 09:50] LABS: Hepatitis A Ab IgM Negative
[2024-05-20 09:51] LABS: Hepatitis B Core IgM Negative; Hepatitis C Antibody Negative (Negative)
[2024-05-20] MEDS: levoFLOXacin 500MG 100 ML IV SCH (10:00)
[2024-05-20] MEDS: cefTRIAXone 1GM/50ML D5W 50 ML IV ONE (11:26)
--- NOTE | 2024-05-20 13:46 | DVHSR ---
APPROVED REPORT EXAM: LIMITED Two-dimensional and M-mode echocardiogram with Doppler and color Doppler. Blood Pressure: 132/73 mmHg INDICATION CAD RISK FACTORS Height: 5' 8", Weight: 144 DIMENSIONS LVDd4.1 (3.8-5.7cm)LA (2D)3.5 (1.9-4.0cm)Aortic Root3.2 (2.0-3.7cm) LVDs3.2 (2.5-4.0cm)LA (MM) (1.9-4.0cm)Aortic Cusp Exc1.4 (1.5-2.0cm) EF (%) 45.0 (55-70%)Rt. Atrium3.9 (1.9-4.0cm)Asc. Aorta cm IVSd1.1 (0.7-1.1cm)RV (D) (1.8-2.4cm) PWd0.9 (0.7-1.1cm) Mitral Valve MitralMitral Stenosis E wave0.70m/sMV Mean GR.mmHg A wave1.00m/sMV Peak GR.mmHg E/A ratio0.72D MVAcm2 Aortic Valve Aortic ValveAortic Stenosis V10.70m/Christiano Mean GR.6mmHg V21.70m/Christiano Peak GR.12mmHg LVOT Diameter2.1 (1.8-2.4cm)Doppler AVA1.43cm2 Pulmonic Valve V20.70m/s Tricuspid Valve TR Velocity2.90m/s [id number] Other Information Quality : Technically LimitedRhythm : Technically limited study due to body habitus. Conclusion Normal left ventricular size and dimension. Normal left ventricular systolic function estimated ejec tion fraction 55%. There is a grade 1 diastolic dysfunction. Normal right ventricular size and dimension. Normal right ventricular systolic function. Moderately increased right ventricular systolic pressure at 40 mm of mercury Normal biatrial size and dimension. Normal aortic valve structure and function. Normal mitral valve structure and function. Normal tricuspid valve structure and function. The pulmonary valve is grossly normal. No pericardial effusion.
--- NOTE | 2024-05-20 14:44 | DVHPN2 ---
Progress Note - Dictate Date Seen: May 20, 2024 Medical Necessity Reason Pt with a Central, PICC or Fol: No Subjective alert and awake but intermittently seems to be confused. denies any chest pain or shortness for breath. Feels weak and tired. vital signs Vital Sign Date Time Temp Pulse Resp B/P (MAP) Pulse Ox O2 Delivery O2 Flow Rate FiO2 05/20/24 13:53 73 20 98 05/20/24 13:48 Nasal Cannula* 4 36 05/20/24 12:51 97.6 105/51 (69) 97.6 Total Intake and Output 05/19/24 05/19/24 05/20/24 15:00 23:00 07:00 Intake Total 1035 ml 160 ml Output Total 100 ml 850 ml Balance 935 ml -690 ml medications Current Medications Medications Dose Ordered Sig/Alessia Route Start Time Stop Time Status Last Admin Dose Admin Sodium Chloride 1,000 ml @ 75 mls/hr [id number] IV 05/18/24 20:15 05/19/24 22:55 75 MLS/HR Acetaminophen 650 mg Q6HPRN PRN PO 05/18/24 20:15 Acetaminophen/ Hydrocodone Bitart 1 tab Q6HPRN PRN PO 05/18/24 20:15 05/20/24 11:25 1 TAB Morphine Sulfate 2 mg Q6HPRN PRN IV 05/18/24 20:15 Ondansetron HCl 4 mg Q6HPRN PRN IV 05/18/24 20:15 Pantoprazole Sodium 40 mg DAILY IV 05/19/24 10:00 05/20/24 09:18 40 MG Levofloxacin/ Dextrose 100 ml @ 100 mls/hr DAILY IV 05/20/24 10:00 Ipratropium [place] 0.5 mg Q4HR NEB 05/20/24 06:00 05/20/24 13:48 0.5 MG Methylprednisolone Sodium Succinate 40 mg BID IV 05/20/24 10:00 05/20/24 09:19 40 MG Ceftriaxone Sodium 50 ml @ 100 mls/hr DAILY@ IV 05/21/24 09:00 objective Frail-appearing gentleman in bed without distress. HEENT neck supple no JVD. Jaundice noted. Heart regular rate and rhythm S1 and S2. Lungs fair air movement without any wheezing. Degraded breath sounds in the bases. Abdomen soft tympanic to palpation. Positive bowel sounds. Nontender. Extremities no edema. Neurologically no focal deficits noted. laboratory and microbiology Laboratory Tests 05/20/24 06:45 05/19/24 04:53 Test 05/20/24 06:45 Range/Units Serum Glucose 150 H 74-106 mg/dL Assessment/Plan Patient pending MRI of the abdomen. Apparently patient is unable to lay flat for a prolonged period of time due to weakness and unable to lay still therefore it is not done. We will try to give a dose of Ativan and re-attempt MRI of the abdomen and pelvis as ordered. Proceed with a head CT. Otherwise continue rest of supportive care and treatment as he is on. Liver biopsy is done and report is pending. Discussed with the patient's DPOA Mike his nephew over the phone [phone] and updated patient's condition diagnosis prognosis and plan of care. Problems(with codes): (1) Transaminitis (2) Liver masses (3) Liver disease (4) Lactic acidosis Dietary Evaluation Review Comments: Advance to diet when medically feasible. follow up in 3-5 days Expected Outcomes/Goals: Maintain weight. Plan discussed with: Other ARABELLA NOE MD May 20, 2024 14:44
--- NOTE | 2024-05-20 17:18 | DVHINCON2 ---
Date of service: May 20, 2024 Referring Physician MARIELENA Lange Reason for Consultation Acute hypoxic respiratory failure, emphysema, COPD exacerbation and pleural effusion, History of Present Illness A 78-year-old man with past medical history of hyperlipidemia and hypothyroidism who presented with generalized weakness. He was noted to have [id number] abdominal pain located in the right upper quadrant and radiating diffusely to all of the quadrants. Pain was colicky, associated with nausea and anorexia. He was having poor oral intake. He denies any chest pain or shortness of breath. No urinary symptoms. Pulmonary consultation is requested for evaluation and management of acute hypoxic respiratory failure, emphysema, COPD exacerbation and pleural effusion, Review of systems: 14 point review of systems is negative unless otherwise noted above. Past medical history: None mentioned in prior medical history. Past surgical history: None mentioned in prior surgeries. Medications: Reviewed Allergies: No known drug allergies. Family history: No family history of premature CAD. No family history of lung disease. Social history: Smokes less than one pack per day. No alcohol or illicit drug use. Lives with family. Family History: Patient reports no known family medical history. Allergies: Coded Allergies: NO KNOWN ALLERGIES (Unverified , 05/18/24) Home Meds Reported Medications Atorvastatin Calcium (Lipitor) 20 Mg Tab, 1 TAB PO DAILY, #90 TAB 1 Refill 05/19/24 Levothyroxine Sodium (Levothyroxine Sodium) 125 Mcg Tab, 125 MCG PO QAM for 30 Days, MCG 05/19/24 Current Medications Current Medications Medications (Trade) Dose Ordered Sig/Alessia Route PRN Reason Start Time Stop Time Status Last Admin Levofloxacin/ Dextrose 100 ml @ 100 mls/hr DAILY IV 05/20/24 10:00 Ipratropium [place] (Atrovent Medneb) 0.5 mg Q4HR NEB 05/20/24 06:00 05/20/24 13:48 Methylprednisolone Sodium Succinate (Solu Medrol) 40 mg BID IV 05/20/24 10:00 05/20/24 09:19 Ceftriaxone Sodium 50 ml @ 100 mls/hr DAILY@09 IV 05/21/24 09:00 Vital Signs Vital Signs Date Time Temp Pulse Resp B/P (MAP) Pulse Ox O2 Delivery O2 Flow Rate FiO2 05/20/24 13:53 73 20 98 05/20/24 13:48 Nasal Cannula* 4 36 05/20/24 12:51 97.6 105/51 (69) 97.6 Physical Exam Gen.: Patient lying in bed in no apparent distress. On supplemental oxygen. Head: Normocephalic, atraumatic Eyes: EOMI/PERRLA. Ears: Normal hearing. Normal anatomy. Neck/trachea: Trachea midline, supple. Nose: Normal external anatomy. Mouth: Moist mucous membranes. Chest: Fair air entry bilaterally. No wheezing or rhonchi. Cardio vascular: Positive S1, positive S2. Regular rate and rhythm. Abdomen: Positive bowel sounds in all 4 quadrants. Soft, non-tender, non- distended. : Deferred. Rectal: Deferred Skin: Warm, dry. Extremities: 2+ radial pulses bilaterally. No lower extremity edema. Neuro: Awake, alert, oriented x3. No gross motor or sensory deficits. Cranial nerves II through XII intact. Gait not assessed. Labs/Diagnostic Data Labs Test 05/20/24 06:45 05/20/24 04:24 05/19/24 15:14 05/19/24 13:00 Range/Units Sodium Level 136 136-145 mmol/L Potassium Level 4.0 3.5-5.1 mmol/L Chloride Level 103 98-107 mmol/L Carbon Dioxide Level 19 L 20-31 mmol/L Anion Gap 14 5-15 Blood Urea Nitrogen 33 H 9-23 mg/dL Creatinine 0.98 0.700-1.30 mg/dL Glomerular Filtration Rate Calc 79 >90 mL/min BUN/Creatinine Ratio 33.7 H 10.0-20.0 Serum Glucose 150 H 74-106 mg/dL Calcium Level 9.5 8.7-10.4 mg/dL Total Bilirubin 12.3 H 0.2-1.0 mg/dL Aspartate Amino Transferase (AST) 615 H 13-40 U/L Alanine Aminotransferase (ALT) 229 H 7-40 U/L Alkaline Phosphatase 754 H 46-116 U/L Total Protein 6.4 5.7-8.2 g/dL Albumin 2.9 L 3.2-4.8 g/dL Blood Gas Specimen Type Arterial Blood Gas Sample Site Left radial Blood Gas Patient Temperature 37.0 Arterial Blood Date Drawn [id number] Arterial Blood pH 7.315 L 7.350-7.450 Arterial Blood Partial Pressure CO2 39.2 35.0-48.0 mmHg Arterial Blood Partial Pressure O2 81.5 L 83.0-108.0 mmHg Arterial Blood HCO3 19.5 L 21.0-28.0 mmol/L Arterial Blood Oxygen Saturation 95.7 94.0-98.0 % Arterial Blood Base Excess -6.1 L -2.0-3.0 mmol/L Arterial Blood Oxyhemoglobin 94.3 94.0-98.0 % Arterial Blood Carboxyhemoglobin 0.9 0.5-1.5 % Arterial Blood Methemoglobin 0.6 0.0-1.5 % Sundeep Test Modified Blood Gas Total Hemoglobin 16.40 13.5-17.5 g/dL Blood Gas Liter Flow 6.00 Blood Gas Modality Nasal cannula FiO2 % 44.0 Ammonia 46 H 11-32 umol/L Lactic Acid Level 3.1 *H 0.4-2.0 mmol/L CA 19-9 Antigen 3 0-35 U/mL Test 05/19/24 04:53 05/18/24 21:31 05/18/24 21:02 05/18/24 19:54 Range/Units White Blood Count 9.6 4.4-10.8 10^3/uL Red Blood Count 5.23 4.5-5.90 10^6/uL Hemoglobin 15.5 13.5-17.5 g/dL Hematocrit 47.1 41.0-53.0 % Mean Corpuscular Volume 90.0 80.0-100.0 fL Mean Corpuscular Hemoglobin 29.7 28.0-32.0 pg Mean Corpuscular Hemoglobin Concent 33.0 32.0-36.0 g/dL Red Cell Distribution Width 22.1 H 11.8-14.3 % Platelet Count 100 L 140-450 10^3/uL Mean Platelet Volume 7.8 6.9-10.8 fL Neutrophils (%) (Auto) 37.0-80.0 % Lymphocytes (%) (Auto) 10.0-50.0 % Monocytes (%) (Auto) 0.0-12.0 % Basophils (%) (Auto) 0.0-2.0 % Neutrophils # (Auto) 1.6-8.6 10 ^3/uL Lymphocytes # (Auto) 0.4-5.4 10 ^3/uL Monocytes # (Auto) 0-1.3 10 ^3/uL Differential Total Cells Counted 100.0 100 Neutrophils % (Manual) 77 37.0-80.0 Band Neutrophils % (Manual) 2 Lymphocytes % (Manual) 13 10.0-50.0 Monocytes % (Manual) 8 0-12 Eosinophils % (Manual) 0 0-7 Basophils % (Manual) 0 0.0-2.0 Metamyelocytes % (manual) 0 Myelocytes % (Manual) 0 Promyelocytes % (Manual) 0 Blast Cells % (Manual) 0 Reactive Lymphocytes 0 Platelet Estimate Decreased Carcinoembryonic Antigen 100.00 <=5.0 ng/mL Troponin I High Sensitivity 22 </=54 ng/L Urine Color Dark-yellow Yellow Urine Clarity Turbid H Clear Urine pH 5.5 5.0-9.0 Urine Specific [place] 1.022 1.001-1.035 Urine Protein Trace H Negative Urine Ketones Trace Negative Urine Blood Negative Negative /uL Urine Nitrite Negative Negative Urine Bilirubin 2+ Negative Urine Urobilinogen 2 H Negative mg/dL Urine Leukocyte Esterase Negative Negative /uL Urine RBC 1 0 - 3 /hpf Urine WBC 1 0 - 3 /hpf Urine Squamous Epithelial Cells None seen <5 /hpf Urine Bacteria None seen None Seen /hpf Urine Mucus Few None Seen Urine Glucose Normal Normal mg/dL Urine Opiates Screen Neg NEGATIVE Urine Fentanyl Screen Neg NEGATIVE Urine Barbiturates Screen Neg NEGATIVE Urine Phencyclidine Screen Neg NEGATIVE Urine Amphetamines Screen Neg NEGATIVE Urine Benzodiazepines Screen Neg NEGATIVE Urine Cocaine Screen Neg NEGATIVE Urine Cannabinoids Screen Neg NEGATIVE Hepatitis A IgM Antibody Negative Hepatitis B Surface Antigen Negative Negative Hepatitis B Core IgM Antibody Negative Hepatitis C Antibody Negative Negative Test 05/18/24 17:31 05/18/24 16:44 Range/Units Nucleated Red Blood Cells 2.0 % Anisocytosis (manual) Slight Prothrombin Time 14.0 H 9.3-11.8 sec Prothrombin Time INR 1.35 H 0.9-1.15 Magnesium Level 2.6 1.6-2.6 mg/dL Direct Bilirubin 9.0 H <0.3 mg/dL B-Type Natriuretic Peptide 70.04 0-100 pg/mL POC Glucose 90 70-106 mg/dl Microbiology Date/Time Source Procedure Growth Status 05/18/24 21:31 Blood Blood Culture - Preliminary NO GROWTH AFTER 24 HOURS OF INCUBATION. Resulted 05/18/24 21:02 Voided Urine Urine Culture - Preliminary Resulted Assessment Impression: Acute hypoxic respiratory failure Emphysema, likely COPD COPD exacerbation Pleural effusion Atelectasis Nicotine dependence Liver mass Acute transaminitis Hyperbilirubinemia Lactic acidosis Plan: CT chest was performed. Centrilobular emphysematous changes in the upper lobe. Small right pleural effusion with compressive atelectasis. Hypodense lesions throughout the. Supplemental oxygen on 4 liters/minute via nasal cannula Keep O2 saturation above 92%. Incentive spirometry Continue antibiotics Follow up cultures IV fluids at 75 mL an hour. Bronchodilators IV steroids GI prophylaxis Condition: Critical Prognosis: Poor given multiple comorbidities. Rest of plan per hospitalist and other consultants. Thank you Dr. Pastrana for allowing me to participate in this patient's care. Further recommendations will depend on patient's clinical course. Please do not hesitate to contact me if you have any questions or concerns. This medical document was created using an electronic medical record system with [employer] dictation system. Although this document has been carefully reviewed, there may still be some phonetic and typographical errors. These areas are purely typographical due to imperfections of the software programs, and do not reflect any compromise in the patient's medical care. Plan discussed with: Patient, Other (RN, MD) HOUSTON NUNEZ MD May 20, 2024 17:18
[2024-05-20] MEDS: guaiFENesin 200 MG/10 ML UD PO PRN (18:05)
[2024-05-21] VITALS (32 sets, daily range): BP systolic 97–129; BP diastolic 48–87; PULSE 70–117; RESP 11–24; TEMP 97.5–97.8; O2SAT 92–100
[2024-05-21 08:04] LABS: Alanine Aminotransferase 244 U/L (7-40); Albumin 3.1 g/dL (3.2-4.8); Alkaline Phosphatase 725 U/L (46-116); Anion Gap 13 (5-15); Aspartate Aminotransferase 630 U/L (13-40); Bilirubin, Total 13.3 mg/dL (0.2-1.0); Blood Urea Nitrogen 37 mg/dL (9-23); Calcium 9.8 mg/dL (8.7-10.4); Carbon Dioxide 21 mmol/L (20-31); Chloride 101 mmol/L (98-107); Glucose 128 mg/dL (74-106); Potassium 5.2 mmol/L (3.5-5.1); Sodium 135 mmol/L (136-145); Total Protein 6.6 g/dL (5.7-8.2)
[2024-05-21 08:06] LABS: BUN/Creatinine Ratio 41.6 (10.0-20.0)
[2024-05-21] MEDS: cefTRIAXone 1GM/50ML D5W 50 ML IV SCH (08:08)
[2024-05-21 08:09] LABS: Hematocrit 47.8 % (41.0-53.0); Hemoglobin 15.9 g/dL (13.5-17.5); Lactic Acid w/Reflex 6.6 mmol/L (0.4-2.0); Mean Corpuscular Hemoglobin 29.5 pg (28.0-32.0); Mean Corpuscular Hgb Conc. 33.2 g/dL (32.0-36.0); Mean Corpuscular Volume 88.9 fL (80.0-100.0); Platelet Count (auto) 118 10^3/uL (140-450); Red Blood Cells 5.38 10^6/uL (4.5-5.90); White Blood Cell 12.6 10^3/uL (4.4-10.8)
[2024-05-21 08:11] LABS: Base Excess -8.3 mmol/L (-2.0-3.0)
[2024-05-21] MEDS: FUROSEMIDE 40 MG/4 ML VIAL IV ONE (08:12)
[2024-05-21 08:18] LABS: Red Cell Distribution Width 22.7 % (11.8-14.3)
[2024-05-21 08:19] LABS: Basophils % (manual) 0 (0.0-2.0); Blast Cells 0; Eosinophils % (manual) 0 (0-7); Metamyelocytes % 0; Myelocytes % 0; Promyelocytes % 0; Reactive Lymphocytes 0
[2024-05-21] MEDS: SODIUM CHLORIDE 0.9% 1,000 ML IV SCH ×2 (08:19→19:00)
[2024-05-21] MEDS: ALBUTEROL SULF 2.5 MG/0.5ML(0.5%) NEB SOLN NEB SCH (11:00)
[2024-05-21 11:31] LABS: Band Neutrophils % (manual) 40; Lymphocytes % (manual) 14 (10.0-50.0); Monocytes % (manual) 10 (0-12)
[2024-05-21] MEDS ORDERED: GADOTERATE MEG 10 MMOL/20ml INJ (0.5MMOL/ml) IV ONE (11:31)
[2024-05-21 11:33] LABS: Anisocytosis Slight; Platelet Estimate Decreased
--- NOTE | 2024-05-21 12:10 | DVHPN2 ---
Progress Note - Dictate Date Seen: May 21, 2024 Medical Necessity Reason Pt with a Central, PICC or Fol: No Subjective alert and awake appears tired. Patient apparently went down for MRI of the abdomen and pelvis elevated as the MRI brain. Patient had MRI brain done but refused to have abdomen therefore his sent back. Discussed with the patient importance of getting MRI of the abdomen and advised to retry it again. vital signs Vital Sign Date Time Temp Pulse Resp B/P (MAP) Pulse Ox O2 Delivery O2 Flow Rate FiO2 05/21/24 09:48 97.6 110 20 129/87 (101) 92 97.6 05/21/24 08:00 Nasal Cannula* 3 32 Total Intake and Output 05/20/24 05/20/24 05/21/24 15:00 23:00 07:00 Intake Total 50 ml 840 ml 1000 ml Output Total 800 ml Balance 50 ml 40 ml 1000 ml medications Current Medications Medications Dose Ordered Sig/Alessia Route Start Time Stop Time Status Last Admin Dose Admin Acetaminophen 650 mg Q6HPRN PRN PO 05/18/24 20:15 Acetaminophen/ Hydrocodone Bitart 1 tab Q6HPRN PRN PO 05/18/24 20:15 05/20/24 11:25 1 TAB Morphine Sulfate 2 mg Q6HPRN PRN IV 05/18/24 20:15 Ondansetron HCl 4 mg Q6HPRN PRN IV 05/18/24 20:15 Pantoprazole Sodium 40 mg DAILY IV 05/19/24 10:00 05/21/24 10:28 40 MG Levofloxacin/ Dextrose 100 ml @ 100 mls/hr DAILY IV 05/20/24 10:00 Ipratropium [place] 0.5 mg Q4HR NEB 05/20/24 06:00 05/21/24 06:36 0.5 MG Ceftriaxone Sodium 50 ml @ 100 mls/hr DAILY@09 IV 05/21/24 09:00 05/21/24 08:08 100 MLS/HR Guaifenesin 200 mg Q4HP PRN PO 05/20/24 17:45 05/20/24 22:52 200 MG Methylprednisolone Sodium Succinate 40 mg Q6HR IV 05/21/24 12:00 Albuterol 2.5 mg Q4HR NEB 05/21/24 10:00 Sodium Chloride 1,000 ml @ 50 mls/hr Q20H IV 05/21/24 08:00 05/21/24 08:19 50 MLS/HR Acetylcysteine 200 mg Q8HR NEB 05/21/24 14:00 Lactulose 30 ml Q6HR PO 05/21/24 12:15 objective Frail-appearing gentleman in bed without distress. HEENT neck supple no JVD. Jaundice noted. Heart regular rate and rhythm S1 and S2. Lungs fair air movement without any wheezing. Degraded breath sounds in the bases. Abdomen soft tympanic to palpation. Positive bowel sounds. Nontender. Extremities no edema. Neurologically no focal deficits noted. laboratory and microbiology Laboratory Tests 05/21/24 07:20 Test 05/21/24 07:20 Range/Units Serum Glucose 128 H 74-106 mg/dL Assessment/Plan We will give him Ativan 1 mg IV prior to MRI of the abdomen given that he is having difficulty lying flat. Start him on lactulose for elevated ammonia levels. His CA 125 level is significantly elevated. Patient's lactic acid is also elevated. We will give him fluid bolus and start him on IV fluids. Patient's urine and blood cultures so far negative for growth. Elevated lactic acid possibly due to his underlying liver disease. Otherwise continue rest of supportive care and treatment as he is on. Overall prognosis remains poor given the jaundice with a liver abnormalities with significant elevated CA 125 levels suspicious for underlying cancer. Dietary Evaluation Review Comments: Advance to diet when medically feasible. follow up in 3-5 days Expected Outcomes/Goals: Maintain weight. Plan discussed with: Other ARABELLA NOE MD May 21, 2024 12:10
--- NOTE | 2024-05-21 12:46 | DVH ---
EXAM: MRI BRAIN HEAD WO CONTRAST HISTORY: ALOC COMPARISON: None TECHNIQUE: MRI was performed utilizing multiple appropriate imaging planes and pulse sequences. FINDINGS: SUPRATENTORIAL REGION: No evidence for acute ischemia or intracranial hemorrhage. Scattered ill-defi bola FLAIR hyperintensities are noted within the bilateral periventricular region, zazueta radiata and subcortical white matter. POSTERIOR FOSSA: Unremarkable. BRAINSTEM: Unremarkable. SELLAR/SUPRASELLAR REGION: Unremarkable. VENTRICLES, CISTERNS, SULCI: Age-appropriate. ORBITS: Unremarkable. PARANASAL SINUSES: Mild bilateral maxillary sinus mucosal thickening. Evidence of prior bilateral antrostomy. MASTOID AIR CELLS: Unremarkable. VASCULATURE: Unremarkable. BONES/ SOFT TISSUES: No suspicious osseous lesion. A 1.2 x 0.5 cm right facial cystic appearing subc utaneous lesion noted likely a sebaceous cyst. Recommend clinical correlation. OTHER: None. IMPRESSION: 1. No acute intracranial process identified. 2. Mild chronic microvascular ischemic changes. 3. Mild chronic left maxillary sinusitis.
[2024-05-21] MEDS: LACTULOSE 20Gm/30ML SOLN PO SCH (13:23)
[2024-05-21] MEDS: methylPREDNISolone SOD SUCC 40 MG/ML VL IV SCH (13:24)
[2024-05-21 15:10] LABS: Lactic Acid w/Reflex 7.3 mmol/L (0.4-2.0)
[2024-05-21] MEDS: ACETYLCYSTEINE 20%(200MG/ML) SOL 4ML NEB SCH (15:23)
[2024-05-21] MEDS: LORazepam 2MG/ML-1ML VIAL IV ONE (16:26)
[2024-05-21 18:02] LABS: Base Excess -4.2 mmol/L (-2.0-3.0)
--- NOTE | 2024-05-21 18:27 | DVH ---
CHEST RADIOGRAPH Indication:SOB Technique: Single frontal view of the chest was obtained Comparison: XY CHEST PORTABLE on DOS: 05/20/24, XY CHEST PORTABLE on DOS: 05/18/24 FINDINGS: Lines and Tubes: None Lungs: Diffuse interstitial prominence with perihilar fullness. Right lower lung zone linear densit y. Surgical clips are noted over the left perihilar region Pleura: No effusion. No pneumothorax. Cardiomediastinal contours: Unremarkable Bones: No acute osseous abnormality. IMPRESSION: Findings suggestive of pulmonary edema with underlying infectious process / fibrotic changes not excl uded. Right lower lung zone subsegmental atelectasis/scarring.
[2024-05-21] MEDS: SODIUM CHLORIDE 0.9% 1,000 ML IV ONE (18:40)
[2024-05-21] MEDS: FLUMAZENIL 0.1 MG/ML INJ 10ML MDV IV ONE (19:22)
[2024-05-21 19:34] LABS: Alanine Aminotransferase 241 U/L (7-40); Albumin 2.9 g/dL (3.2-4.8); Alkaline Phosphatase 685 U/L (46-116); Anion Gap 14 (5-15); Aspartate Aminotransferase 580 U/L (13-40); Blood Urea Nitrogen 43 mg/dL (9-23); Calcium 9.2 mg/dL (8.7-10.4); Carbon Dioxide 23 mmol/L (20-31); Chloride 100 mmol/L (98-107); Glucose 135 mg/dL (74-106); Magnesium 2.3 mg/dL (1.6-2.6); Phosphorus 2.6 mg/dL (2.4-5.1); Potassium 3.8 mmol/L (3.5-5.1); Sodium 137 mmol/L (136-145)
[2024-05-21 19:35] LABS: BUN/Creatinine Ratio 37.1 (10.0-20.0); Bilirubin, Total 14.6 mg/dL (0.2-1.0); Hematocrit 47.1 % (41.0-53.0); Mean Corpuscular Hemoglobin 30.5 pg (28.0-32.0); Mean Corpuscular Volume 89.6 fL (80.0-100.0); Platelet Count (auto) 91 10^3/uL (140-450); Red Blood Cells 5.25 10^6/uL (4.5-5.90); Total Protein 5.8 g/dL (5.7-8.2); White Blood Cell 10.7 10^3/uL (4.4-10.8)
[2024-05-21 19:37] LABS: Red Cell Distribution Width 23.5 % (11.8-14.3)
[2024-05-21 19:38] LABS: Basophils % (manual) 0 (0.0-2.0); Blast Cells 0; Eosinophils % (manual) 0 (0-7); Promyelocytes % 0; Reactive Lymphocytes 0
[2024-05-21 19:41] LABS: Lactic Acid w/Reflex 8.4 mmol/L (0.4-2.0)
--- NOTE | 2024-05-21 19:46 | DVH ---
CHEST RADIOGRAPH Indication:ng placement Technique: Single frontal view of the chest was obtained Comparison: XY CHEST PORTABLE on DOS: 05/21/24, XY CHEST PORTABLE on DOS: 05/20/24, XY CHEST PORTABLE on DOS: 05/18/24 FINDINGS: Lines and Tubes: Enteric tube below the left diaphragm in the stomach. Lungs: No focal consolidation. Pleura: No effusion. No pneumothorax. Cardiomediastinal contours: Unremarkable Bones: No acute osseous abnormality. IMPRESSION: 1. Enteric tube below the left diaphragm in the stomach.
--- NOTE | 2024-05-21 19:47 | DVH ---
Procedure: MRI MRI ABDOMEN W AND WO 05/21/2024 12:08 PM Indication:ELEVATED BILI. Comparison Study: CT scan dated 05/18/2024 Technique: Multi planar, multisequence MRI of the abdomen was performed prior and after uneventful ad ministration of IV contrast. 20 mL of Clariscan was administered intravenously. FINDINGS: Lower Chest: Small bibasilar pulmonary opacities are seen, right greater than left likely subsegmen vargas atelectasis. Trace bilateral pleural effusions. Hepatobiliary: Numerous confluent nodules are seen in the right and left hepatic lobes that are diffi cult to measure individually. The liver is nearly completely infiltrative by these lesions. The postc ontrast images show slow gradual enhancement less than normal liver parenchyma. There is no intrahep atic or extrahepatic ductal dilatation. Mild nodular liver contour noted. No cholelithiasis. Mild g allbladder wall thickening and pericholecystic fluid. Spleen: Normal in size. Numerous hypodense lesions are noted measuring up to 1 cm. Pancreas: Unremarkable. Adrenal Glands: Unremarkable. tract: The kidneys are normal in size bilaterally without hydronephrosis or nephrolithiasis. A 1.5 cm simple cyst is seen in the lower pole of the left kidney. A subcentimeter cyst is seen in the upp er pole of the left kidney. GI tract: The stomach is grossly normal in appearance. No evidence of small bowel obstruction. Mild circumferential ascending colon wall thickening noted. Lymphatics: No mesenteric, retroperitoneal or periportal lymphadenopathy. Vasculature: The abdominal aorta is normal in in caliber. Bones/soft tissues: Mild body wall edema more prominent in the bilateral flanks. Other: None. IMPRESSION: 1. 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 Recommend further evaluat ion with ultrasound-guided biopsy. 2. There is mild circumferential ascending colon wall thickening that may reflect underlying malignan cy. Recommend further evaluation with colonoscopy. 3. Numerous subcentimeter nonenhancing splenic lesions likely metastasis. 4. Trace ascites. 5. Nonspecific mild circumferential gallbladder wall thickening likely secondary to underlying hepati c disease. No cholelithiasis. Correlate clinically to rule out cholecystitis. 6. Mild bibasilar subsegmental atelectasis.
[2024-05-21 20:21] LABS: Band Neutrophils % (manual) 30; Lymphocytes % (manual) 12 (10.0-50.0); Metamyelocytes % 1; Monocytes % (manual) 2 (0-12); Myelocytes % 1; Platelet Estimate Decreased
[2024-05-21] MEDS: PANTOPRAZOLE 40 MG/10 ML VIAL INJ IV SCH (21:46)
--- NOTE | 2024-05-21 22:10 | DVHPN2 ---
Progress Note - Dictate Date Seen: May 21, 2024 Medical Necessity Reason Pt with a Central, PICC or Fol: No vital signs Vital Sign Date Time Temp Pulse Resp B/P (MAP) Pulse Ox O2 Delivery O2 Flow Rate FiO2 05/21/24 21:31 82 20 100 05/21/24 17:01 97.5 109/61 (77) 97.5 05/21/24 15:23 Nasal Cannula* 3 32 Total Intake and Output 05/20/24 05/20/24 05/21/24 15:00 23:00 07:00 Intake Total 50 ml 840 ml 1000 ml Output Total 800 ml Balance 50 ml 40 ml 1000 ml medications Current Medications Medications Dose Ordered Sig/Alessia Route Start Time Stop Time Status Last Admin Dose Admin Acetaminophen 650 mg Q6HPRN PRN PO 05/18/24 20:15 Acetaminophen/ Hydrocodone Bitart 1 tab Q6HPRN PRN PO 05/18/24 20:15 05/20/24 11:25 1 TAB Morphine Sulfate 2 mg Q6HPRN PRN IV 05/18/24 20:15 Ondansetron HCl 4 mg Q6HPRN PRN IV 05/18/24 20:15 Levofloxacin/ Dextrose 100 ml @ 100 mls/hr DAILY IV 05/20/24 10:00 Ipratropium [place] 0.5 mg Q4HR NEB 05/20/24 06:00 05/21/24 21:21 0.5 MG Ceftriaxone Sodium 50 ml @ 100 mls/hr DAILY@09 IV 05/21/24 09:00 05/21/24 08:08 100 MLS/HR Guaifenesin 200 mg Q4HP PRN PO 05/20/24 17:45 05/20/24 22:52 200 MG Methylprednisolone Sodium Succinate 40 mg Q6HR IV 05/21/24 12:00 05/21/24 18:40 40 MG Albuterol 2.5 mg Q4HR NEB 05/21/24 10:00 05/21/24 21:21 2.5 MG Acetylcysteine 200 mg Q8HR NEB 05/21/24 14:00 05/21/24 21:21 200 MG Lactulose 30 ml Q6HR PO 05/21/24 12:15 05/21/24 13:23 30 ML Sodium Chloride 1,000 ml @ 100 mls/hr Q10H IV 05/21/24 18:00 05/21/24 19:00 100 MLS/HR Pantoprazole Sodium 40 mg BID IV 05/21/24 22:00 05/21/24 21:46 40 MG Lactulose 300 ml Q6H MI 05/21/24 21:00 laboratory and microbiology Laboratory Tests 05/21/24 18:48 Test 05/21/24 18:48 Range/Units Serum Glucose 135 H 74-106 mg/dL Dietary Evaluation Review Comments: Advance to diet when medically feasible. follow up in 3-5 days Expected Outcomes/Goals: Maintain weight. GREGG YUSUF [facility] May 21, 2024 22:10
[2024-05-21] MEDS: LACTULOSE 10g/15ml SOLN 473ML PR SCH (22:20)
[2024-05-21 22:52] LABS: Lactic Acid w/Reflex 7.4 mmol/L (0.4-2.0)
[2024-05-22] VITALS (47 sets, daily range): BP systolic 93–137; BP diastolic 49–83; PULSE 81–105; RESP 11–30; TEMP 97.1–97.9; O2SAT 92–100
[2024-05-22 00:34] LABS: Hematocrit 41.3 % (41.0-53.0); Hemoglobin 14.3 g/dL (13.5-17.5)
[2024-05-22 04:50] LABS: Hematocrit 44.4 % (41.0-53.0)
[2024-05-22 05:10] LABS: Alanine Aminotransferase 219 U/L (7-40); Albumin 2.8 g/dL (3.2-4.8); Alkaline Phosphatase 614 U/L (46-116); Anion Gap 13 (5-15); Aspartate Aminotransferase 542 U/L (13-40); Bilirubin, Total 14.1 mg/dL (0.2-1.0); Blood Urea Nitrogen 42 mg/dL (9-23); Calcium 9.1 mg/dL (8.7-10.4); Carbon Dioxide 23 mmol/L (20-31); Chloride 105 mmol/L (98-107); Glucose 109 mg/dL (74-106); Potassium 3.6 mmol/L (3.5-5.1); Sodium 141 mmol/L (136-145); Total Protein 5.4 g/dL (5.7-8.2)
[2024-05-22 05:12] LABS: BUN/Creatinine Ratio 40.4 (10.0-20.0)
--- NOTE | 2024-05-22 10:17 | DVHPN2 ---
Progress Note - Dictate Date Seen: May 21, 2024 Medical Necessity Reason Pt with a Central, PICC or Fol: No Subjective Patient seen and examined at bedside. Remains on supplemental oxygen Overnight events reviewed. vital signs Vital Sign Date Time Temp Pulse Resp B/P (MAP) Pulse Ox O2 Delivery O2 Flow Rate FiO2 05/22/24 09:49 90 20 100 05/22/24 09:43 Nasal Cannula* 2 28 05/22/24 07:01 137/74 (95) 05/22/24 04:16 97.9 97.9 Total Intake and Output 05/21/24 05/21/24 05/22/24 15:00 23:00 07:00 Intake Total 50 ml 1100 ml 2100 ml Output Total 1200 ml 1725 ml Balance 50 ml -100 ml 375 ml medications Current Medications Medications Dose Ordered Sig/Alessia Route Start Time Stop Time Status Last Admin Dose Admin Acetaminophen 650 mg Q6HPRN PRN PO 05/18/24 20:15 Acetaminophen/ Hydrocodone Bitart 1 tab Q6HPRN PRN PO 05/18/24 20:15 05/20/24 11:25 1 TAB Morphine Sulfate 2 mg Q6HPRN PRN IV 05/18/24 20:15 Ondansetron HCl 4 mg Q6HPRN PRN IV 05/18/24 20:15 Ipratropium [place] 0.5 mg Q4HR NEB 05/20/24 06:00 05/22/24 09:43 0.5 MG Ceftriaxone Sodium 50 ml @ 100 mls/hr DAILY@09 IV 05/21/24 09:00 05/22/24 08:03 100 MLS/HR Guaifenesin 200 mg Q4HP PRN PO 05/20/24 17:45 05/20/24 22:52 200 MG Methylprednisolone Sodium Succinate 40 mg Q6HR IV 05/21/24 12:00 05/22/24 06:09 40 MG Albuterol 2.5 mg Q4HR NEB 05/21/24 10:00 05/22/24 09:43 2.5 MG Acetylcysteine 200 mg Q8HR NEB 05/21/24 14:00 05/22/24 05:42 200 MG Sodium Chloride 1,000 ml @ 100 mls/hr Q10H IV 05/21/24 18:00 05/22/24 03:59 100 MLS/HR Pantoprazole Sodium 40 mg BID IV 05/21/24 22:00 05/21/24 21:46 40 MG Lactulose 300 ml Q6H NC 05/21/24 21:00 05/22/24 08:04 300 ML Levofloxacin 100 ml @ 100 mls/hr DAILY IV 05/22/24 10:15 objective Gen.: Patient lying in bed in no apparent distress. On supplemental oxygen. Head: Normocephalic, atraumatic. Eyes: EOMI/PERRLA. Ears: Normal hearing. Normal anatomy. Neck/trachea: Trachea midline, supple. Nose: Normal external anatomy. Mouth: Moist mucous membranes. Chest: Decreased air entry bilaterally. No wheezing or rhonchi. Cardiovascular: Positive S1, positive S2. Regular rate and rhythm. Abdomen: Positive bowel sounds in all 4 quadrants. Soft, non-tender, non- distended. : Deferred. Rectal: Deferred. Skin: Warm, dry. Intact. Extremities: 2+ radial pulses bilaterally. No lower extremity edema. Neuro: Awake, alert, oriented x3. No gross motor or sensory deficits. Cranial nerves II through XII intact. Gait not assessed. laboratory and microbiology Laboratory Tests 05/22/24 04:43 05/21/24 18:48 Test 05/22/24 04:43 Range/Units Serum Glucose 109 H 74-106 mg/dL Assessment/Plan Impression: Acute hypoxic respiratory failure Emphysema, likely COPD COPD exacerbation Pleural effusion Atelectasis Nicotine dependence Liver mass Acute transaminitis Hyperbilirubinemia Lactic acidosis Events: Remains on supplemental O2 On 3 LPM NC Taper O2 as tolerated Antitussive for cough. Positive jaundice. HFNC hold Start albuterol and Atrovent q.4 hours CPT/Mucomyst x 3 days Diurese w/ IV Lasix Monitor renal function Labs and imaging reviewed Rest of plan as noted below Plan: CT chest was performed. Centrilobular emphysematous changes in the upper lobe. Small right pleural effusion with compressive atelectasis. Hypodense lesions throughout the. Supplemental oxygen on 3 liters/minute via nasal cannula Keep O2 saturation above 92%. Incentive spirometry Continue antibiotics Follow up cultures IV fluids at 75 mL an hour. Bronchodilators IV steroids GI prophylaxis Prognosis: Poor given multiple comorbidities. Rest of plan per hospitalist and other consultants. Thank you Dr. Victoriano for allowing me to participate in this patient's care. Further recommendations will depend on patient's clinical course. Please do not hesitate to contact me if you have any questions or concerns. This medical document was created using an electronic medical record system with [employer] dictation system. Although this document has been carefully reviewed, there may still be some phonetic and typographical errors. These areas are purely typographical due to imperfections of the software programs, and do not reflect any compromise in the patient's medical care. Dietary Evaluation Review Comments: Advance to diet when medically feasible. follow up in 3-5 days Expected Outcomes/Goals: Maintain weight. Plan discussed with: Patient, Other (RN Cindy, RT Soo) HOUSTON NUNEZ MD May 22, 2024 10:17
[2024-05-22] MEDS: levoFLOXacin 250MG 100 ML IV SCH (10:46)
[2024-05-22 11:53] LABS: Hematocrit 42.8 % (41.0-53.0); Hemoglobin 14.6 g/dL (13.5-17.5)
--- NOTE | 2024-05-22 12:59 | MEDREC ---
[facility] Intervention Section I [facility] Intervention: Duplication of therapy (PLEASE CONSIDER DISCONTINUE CEFTRIAXONE DUE TO DUPLICATION WITH LEVOFLOXACIN) EDGAR TADEO May 22, 2024 12:59
--- NOTE | 2024-05-22 14:08 | DVHCONRES ---
Date Seen: May 22, 2024 Resident Creating Document: GIORGI CROW RESIDENT Referring Physician Jessica Lange NP Reason for Consultation Coffee-ground emesis History of Present Illness This is a 78-year-old male with past medical history of lung cancer s/p left lower lobectomy about a year ago (? 2022) without any radiation or chemotherapy. Patient presented to the ED with a complaint of generalized weakness. Patient is currently confused therefore most of the information is from the patient's chart or from the nurse. Per the chat, Patients generalized abdominal pain has been ongoing for at least 3 weeks and had worsened involving all the quadrants. It was colicky and associated with nausea, low appetite, poor fluid intake. Initial labs revealed WBC 9.3 hemoglobin of 17.9 plt 122, BUN 39, creatinine 0.95, lactic acid: 4.5 ,AST 686, ALT 256, ALK 925, albumin 2.8, ammonium level at 38, PT/INR were deranged, and serology testing was negative hepatitis B or C causes. CT abdomen and pelvis without contrast revealed innumerable scattered hypodense lesions throughout the liver concerning for metastatic disease of unclear etiology. Patient was intubated, however, yesterday patient pulled out her his NG tube. During suction he was found to have coffee ground emesis. Hence GI was consulted for evaluation. Yesterday, patient's ammonia level was elevated to 90 contributed to his altered mental status. He was given lactulose rectally. Today, a repeat of his ammonia level show a decreased to 14. Past Medical History Lying cancer Hypothyroidism Past Surgical History Lobectomy secondary to lung cancer Family History: Patient reports no known family medical history. Allergies: Coded Allergies: NO KNOWN ALLERGIES (Unverified , 05/18/24) Home Meds Reported Medications Atorvastatin Calcium (Lipitor) 20 Mg Tab, 1 TAB PO DAILY, #90 TAB 1 Refill 05/19/24 Levothyroxine Sodium (Levothyroxine Sodium) 125 Mcg Tab, 125 MCG PO QAM for 30 Days, MCG 05/19/24 Current Medications Current Medications Medications (Trade) Dose Ordered Sig/Alessia Route PRN Reason Start Time Stop Time Status Last Admin Acetylcysteine (Mucomyst Inhalation 20%) 200 mg Q8HR NEB 05/21/24 14:00 05/22/24 05:42 Sodium Chloride 1,000 ml @ 100 mls/hr Q10H IV 05/21/24 18:00 05/22/24 03:59 Pantoprazole Sodium (Protonix) 40 mg BID IV 05/21/24 22:00 05/22/24 10:45 Lactulose 300 ml Q6H AL 05/21/24 21:00 05/22/24 08:04 Levofloxacin 100 ml @ 100 mls/hr DAILY IV 05/22/24 10:15 05/22/24 13:43 DC 05/22/24 10:46 Levofloxacin 100 ml @ 100 mls/hr DAILY@1000,1030 IV 05/23/24 10:00 Review of Systems Unable to get as patient is currently in an altered mental state Vital Signs Vital Signs Date Time Temp Pulse Resp B/P (MAP) Pulse Ox O2 Delivery O2 Flow Rate FiO2 05/22/24 12:01 88 12 93/51 (65) 94 05/22/24 09:43 Nasal Cannula* 2 28 05/22/24 08:01 97.1 97.1 Physical Exam General examination- mildly generalized jaundiced, rectal lactulose seen, rectal bag seen draining slightly greenish watery stool, urinary catheter seen draining tinge of orange urine HEENT- icterus sclera, no acute nasal discharge Cardiovascular- S1-S2 audible, rate and rhythm regular, no murmur Respiratory- Decreased air entry bilaterally. no wheeze or rhonchi Gastrointestinal-abdomen is distended, no rashes or scratches noted, no evidence of spider nevi; present of hepatosplenomegaly, no shifting dullness appreciated Musculoskeletal-no acute joint swelling or tenderness or redness Lower extremity- mild pitting edema Neurological- slightly altered mental status Skin- no acute rash or purpura, mild jaundiced Labs/Diagnostic Data Labs Test 05/22/24 11:49 05/22/24 04:43 05/21/24 21:54 05/21/24 18:54 Range/Units Hemoglobin 14.6 13.5-17.5 g/dL Hematocrit 42.8 41.0-53.0 % Sodium Level 141 136-145 mmol/L Potassium Level 3.6 3.5-5.1 mmol/L Chloride Level 105 98-107 mmol/L Carbon Dioxide Level 23 20-31 mmol/L Anion Gap 13 5-15 Blood Urea Nitrogen 42 H 9-23 mg/dL Creatinine 1.04 0.700-1.30 mg/dL Glomerular Filtration Rate Calc 74 >90 mL/min BUN/Creatinine Ratio 40.4 H 10.0-20.0 Serum Glucose 109 H 74-106 mg/dL Calcium Level 9.1 8.7-10.4 mg/dL Total Bilirubin 14.1 H 0.2-1.0 mg/dL Aspartate Amino Transferase (AST) 542 H 13-40 U/L Alanine Aminotransferase (ALT) 219 H 7-40 U/L Alkaline Phosphatase 614 H 46-116 U/L Ammonia 14 11-32 umol/L Total Protein 5.4 L 5.7-8.2 g/dL Albumin 2.8 L 3.2-4.8 g/dL Lactic Acid Level 7.4 *H 0.4-2.0 mmol/L POC Glucose 128 H 70-106 mg/dl Test 05/21/24 18:48 05/21/24 17:43 05/21/24 07:20 05/19/24 13:00 Range/Units White Blood Count 10.7 4.4-10.8 10^3/uL Red Blood Count 5.25 4.5-5.90 10^6/uL Mean Corpuscular Volume 89.6 80.0-100.0 fL Mean Corpuscular Hemoglobin 30.5 28.0-32.0 pg Mean Corpuscular Hemoglobin Concent 34.0 32.0-36.0 g/dL Red Cell Distribution Width 23.5 H 11.8-14.3 % Platelet Count 91 L 140-450 10^3/uL Mean Platelet Volume 8.0 6.9-10.8 fL Neutrophils (%) (Auto) 37.0-80.0 % Lymphocytes (%) (Auto) 10.0-50.0 % Monocytes (%) (Auto) 0.0-12.0 % Basophils (%) (Auto) 0.0-2.0 % Neutrophils # (Auto) 1.6-8.6 10 ^3/uL Lymphocytes # (Auto) 0.4-5.4 10 ^3/uL Monocytes # (Auto) 0-1.3 10 ^3/uL Differential Total Cells Counted 100.0 100 Neutrophils % (Manual) 54 37.0-80.0 Band Neutrophils % (Manual) 30 Lymphocytes % (Manual) 12 10.0-50.0 Monocytes % (Manual) 2 0-12 Eosinophils % (Manual) 0 0-7 Basophils % (Manual) 0 0.0-2.0 Metamyelocytes % (manual) 1 Myelocytes % (Manual) 1 Promyelocytes % (Manual) 0 Blast Cells % (Manual) 0 Reactive Lymphocytes 0 Platelet Estimate Decreased Phosphorus Level 2.6 2.4-5.1 mg/dL Magnesium Level 2.3 1.6-2.6 mg/dL Blood Gas Specimen Type Arterial Blood Gas Sample Site Left radial Blood Gas Patient Temperature 37.0 Arterial Blood Date Drawn [id number] Arterial Blood pH 7.353 7.350-7.450 Arterial Blood Partial Pressure CO2 38.4 35.0-48.0 mmHg Arterial Blood Partial Pressure O2 81.4 L 83.0-108.0 mmHg Arterial Blood HCO3 20.9 L 21.0-28.0 mmol/L Arterial Blood Oxygen Saturation 95.6 94.0-98.0 % Arterial Blood Base Excess -4.2 L -2.0-3.0 mmol/L Arterial Blood Oxyhemoglobin 93.6 L 94.0-98.0 % Arterial Blood Carboxyhemoglobin 1.4 0.5-1.5 % Arterial Blood Methemoglobin 0.7 0.0-1.5 % Sundeep Test Modified Blood Gas Total Hemoglobin 15.20 13.5-17.5 g/dL Blood Gas Liter Flow 3.00 Blood Gas Modality Nasal cannula FiO2 % 32.0 Anisocytosis (manual) Slight CA 19-9 Antigen 3 0-35 U/mL CA 125 Antigen 57001.0 Not Estab. U/mL Test 05/19/24 04:53 05/18/24 21:31 05/18/24 21:02 05/18/24 19:54 Range/Units Carcinoembryonic Antigen 100.00 <=5.0 ng/mL Troponin I High Sensitivity 22 </=54 ng/L Urine Color Dark-yellow Yellow Urine Clarity Turbid H Clear Urine pH 5.5 5.0-9.0 Urine Specific [place] 1.022 1.001-1.035 Urine Protein Trace H Negative Urine Ketones Trace Negative Urine Blood Negative Negative /uL Urine Nitrite Negative Negative Urine Bilirubin 2+ Negative Urine Urobilinogen 2 H Negative mg/dL Urine Leukocyte Esterase Negative Negative /uL Urine RBC 1 0 - 3 /hpf Urine WBC 1 0 - 3 /hpf Urine Squamous Epithelial Cells None seen <5 /hpf Urine Bacteria None seen None Seen /hpf Urine Mucus Few None Seen Urine Glucose Normal Normal mg/dL Urine Opiates Screen Neg NEGATIVE Urine Fentanyl Screen Neg NEGATIVE Urine Barbiturates Screen Neg NEGATIVE Urine Phencyclidine Screen Neg NEGATIVE Urine Amphetamines Screen Neg NEGATIVE Urine Benzodiazepines Screen Neg NEGATIVE Urine Cocaine Screen Neg NEGATIVE Urine Cannabinoids Screen Neg NEGATIVE Hepatitis A IgM Antibody Negative Hepatitis B Surface Antigen Negative Negative Hepatitis B Core IgM Antibody Negative Hepatitis C Antibody Negative Negative Test 05/18/24 17:31 Range/Units Nucleated Red Blood Cells 2.0 % Prothrombin Time 14.0 H 9.3-11.8 sec Prothrombin Time INR 1.35 H 0.9-1.15 Direct Bilirubin 9.0 H <0.3 mg/dL B-Type Natriuretic Peptide 70.04 0-100 pg/mL Microbiology Date/Time Source Procedure Growth Status 05/20/24 01:58 Sputum Gram Stain - Final Complete 05/20/24 01:58 Respiratory Culture - Final Enterobacter aerogenes Complete 05/18/24 21:31 Blood Blood Culture - Preliminary NO GROWTH AFTER 72 HOURS OF INCUBATION. Resulted 05/18/24 21:02 Voided Urine Urine Culture - Final Complete Assessment Likely metastatic cancer --> CA19- 9: Within normal limits --> CA 125: Extremely elevated ( [address]5718) --> CEA: Extremity elevated ( 100) --> Awaiting pathology report Acute transaminitis--> slowly trending down Hyperbilirubinemia Lactic acidosis Thrombocytopenia Coagulopathic Hyperammonemia- resolved Acute hypoxic respiratory failure Emphysema, likely COPD COPD exacerbation Pleural effusion Atelectasis Nicotine dependence Plan Continue current management per primary team Monitor H/H daily Awaits: US guided hypoechoic irregular liver lesion adjacent to the gallbladder biopsy. Pathology results pending. Protonix 40 IV mg bid Consider hospice Outpatient GI follow up upon discharge Goals of care discussed for more than 19 minute: Full code Case and plan discussed with Dr. Vasquez Plan discussed with: Other (nurse) GIORGI CROW RESIDENT May 22, 2024 14:08
--- NOTE | 2024-05-22 16:20 | DVHPN2 ---
Progress Note - Dictate Date Seen: May 22, 2024 Medical Necessity Reason Pt with a Central, PICC or Fol: No Subjective alert and awake and appears restless. He able to have conversation with a few sentences. Once rectal tube out. Ammonia level has normalized. Has mittens for agitation restlessness vital signs Vital Sign Date Time Temp Pulse Resp B/P (MAP) Pulse Ox O2 Delivery O2 Flow Rate FiO2 05/22/24 16:01 94 24 126/58 (80) 05/22/24 14:14 99 05/22/24 14:08 Nasal Cannula* 2 28 05/22/24 08:01 97.1 97.1 Total Intake and Output 05/21/24 05/21/24 05/22/24 15:00 23:00 07:00 Intake Total 50 ml 1100 ml 2100 ml Output Total 1200 ml 1725 ml Balance 50 ml -100 ml 375 ml medications Current Medications Medications Dose Ordered Sig/Alessia Route Start Time Stop Time Status Last Admin Dose Admin Acetaminophen 650 mg Q6HPRN PRN PO 05/18/24 20:15 Acetaminophen/ Hydrocodone Bitart 1 tab Q6HPRN PRN PO 05/18/24 20:15 05/20/24 11:25 1 TAB Morphine Sulfate 2 mg Q6HPRN PRN IV 05/18/24 20:15 Ondansetron HCl 4 mg Q6HPRN PRN IV 05/18/24 20:15 Ipratropium [place] 0.5 mg Q4HR NEB 05/20/24 06:00 05/22/24 14:08 0.5 MG Ceftriaxone Sodium 50 ml @ 100 mls/hr DAILY@09 IV 05/21/24 09:00 05/22/24 08:03 100 MLS/HR Guaifenesin 200 mg Q4HP PRN PO 05/20/24 17:45 05/20/24 22:52 200 MG Methylprednisolone Sodium Succinate 40 mg Q6HR IV 05/21/24 12:00 05/22/24 12:26 40 MG Albuterol 2.5 mg Q4HR NEB 05/21/24 10:00 05/22/24 14:08 2.5 MG Acetylcysteine 200 mg Q8HR NEB 05/21/24 14:00 05/22/24 14:09 200 MG Sodium Chloride 1,000 ml @ 100 mls/hr Q10H IV 05/21/24 18:00 05/22/24 14:10 100 MLS/HR Pantoprazole Sodium 40 mg BID IV 05/21/24 22:00 05/22/24 10:45 40 MG Levofloxacin 100 ml @ 100 mls/hr DAILY@1000,1030 IV 05/23/24 10:00 Lactulose 30 ml Q6HR PO 05/22/24 18:00 objective He is more alert and awake. He is able to conversation with few sentences. Appears restless. HEENT neck supple no JVD positive jaundice. Heart regular rate and rhythm S1 and S2. Lungs without rales wheezes. Abdomen is tympanic to palpation slightly distended positive active bowel sounds. Extremities no edema. laboratory and microbiology Laboratory Tests 05/22/24 11:49 05/22/24 04:43 05/21/24 18:48 Test 05/22/24 04:43 Range/Units Serum Glucose 109 H 74-106 mg/dL Assessment/Plan He has ammonia level is normalized with a rectal lactulose. We will DC the rectal tube today. Start him on oral lactulose given his mentation has significantly improved. Patient had a MRI of the brain which did not show any acute stroke or pathology. He had MRI of the abdomen pelvis showed possible colon mass with Mets to liver. No obvious bile duct obstruction identified. Therefore we will have a GI consultation. Continue oral lactulose. Continue current antibiotics. Follow the labs. Repeat lactic acid levels. Otherwise further clinical management per clinical course. Overall prognosis remains poor at present. Discussed with the patient's nurse at bedside regarding care plan. Problems(with codes): (1) Lactic acidosis (2) Liver disease (3) Liver masses (4) Transaminitis Dietary Evaluation Review Comments: Advance to diet when medically feasible. follow up in 3-5 days Expected Outcomes/Goals: Maintain weight. Plan discussed with: Other ARABELLA NOE MD May 22, 2024 16:20
[2024-05-22 16:24] LABS: Lactic Acid w/Reflex 6.8 mmol/L (0.4-2.0)
[2024-05-22] MEDS: LACTULOSE 20Gm/30ML SOLN PO SCH (18:00)
[2024-05-22] MEDS: IPRATROPIUM BROM 0.5 MG/2.5ML INH SOL NEB SCH (18:34)
[2024-05-22] MEDS: ALBUTEROL SULF 2.5 MG/0.5ML(0.5%) NEB SOLN NEB SCH (18:34)
[2024-05-22] MEDS: ACETYLCYSTEINE 20%(200MG/ML) SOL 4ML NEB SCH (18:35)
[2024-05-22] MEDS: methylPREDNISolone SOD SUCC 40 MG/ML VL IV SCH (20:33)
[2024-05-22] MEDS: MORPHINE SULFATE INJ 2 MG/ml SYRG IV PRN (22:31)
[2024-05-23] VITALS (31 sets, daily range): BP systolic 51–133; BP diastolic 20–63; PULSE 53–109; RESP 0–24; TEMP 97.2–97.9; O2SAT 94–100
[2024-05-23 05:48] LABS: Hematocrit 43.4 % (41.0-53.0); Hemoglobin 14.5 g/dL (13.5-17.5); Mean Corpuscular Hemoglobin 29.8 pg (28.0-32.0); Mean Corpuscular Hgb Conc. 33.5 g/dL (32.0-36.0); Mean Corpuscular Volume 88.9 fL (80.0-100.0); Platelet Count (auto) 84 10^3/uL (140-450); Red Blood Cells 4.88 10^6/uL (4.5-5.90); White Blood Cell 14.8 10^3/uL (4.4-10.8)
[2024-05-23 05:52] LABS: Red Cell Distribution Width 22.6 % (11.8-14.3)
[2024-05-23 05:53] LABS: Basophils % (manual) 0 (0.0-2.0); Blast Cells 0; Metamyelocytes % 0; Myelocytes % 0; Promyelocytes % 0; Reactive Lymphocytes 0
[2024-05-23 06:13] LABS: Alanine Aminotransferase 238 U/L (7-40); Albumin 2.5 g/dL (3.2-4.8); Alkaline Phosphatase 578 U/L (46-116); Anion Gap 13 (5-15); Aspartate Aminotransferase 611 U/L (13-40); Blood Urea Nitrogen 48 mg/dL (9-23); Calcium 9.4 mg/dL (8.7-10.4); Carbon Dioxide 22 mmol/L (20-31); Chloride 108 mmol/L (98-107); Glucose 89 mg/dL (74-106); Potassium 4.1 mmol/L (3.5-5.1); Sodium 143 mmol/L (136-145); Total Protein 5.3 g/dL (5.7-8.2)
[2024-05-23 06:15] LABS: BUN/Creatinine Ratio 45.7 (10.0-20.0)
[2024-05-23 06:52] LABS: Band Neutrophils % (manual) 3; Eosinophils % (manual) 2 (0-7); Lymphocytes % (manual) 15 (10.0-50.0); Monocytes % (manual) 8 (0-12); Platelet Estimate Decreased
[2024-05-23] MEDS: FUROSEMIDE 20 MG/2 ML VIAL IV ONE (08:31)
--- NOTE | 2024-05-23 08:59 | DVH ---
CHEST RADIOGRAPH Indication:RESPIRATORY FAILURE Technique: Single frontal view of the chest was obtained Comparison: XY CHEST PORTABLE on DOS: 05/21/24 FINDINGS: Lines and Tubes: None Lungs: Bilateral airspace disease similar to prior study. Pleura: No effusion. No pneumothorax. Cardiomediastinal contours: Unremarkable Bones: No acute osseous abnormality. IMPRESSION: 1. Bilateral airspace disease may reflect edema or pneumonia.
[2024-05-23] MEDS: levoFLOXacin 250MG 100 ML IV SCH (09:16)
[2024-05-23 14:59] LABS: Base Excess -10.5 mmol/L (-2.0-3.0)
[2024-05-23 15:40] LABS: Base Excess -12.1 mmol/L (-2.0-3.0)
--- NOTE | 2024-05-23 16:00 | DVHPN2 ---
Progress Note - Dictate Date Seen: May 23, 2024 Medical Necessity Reason Pt with a Central, PICC or Fol: No Subjective He appears more confused and agitated today. Taking shallow breaths. Noted to be acidotic. vital signs Vital Sign Date Time Temp Pulse Resp B/P (MAP) Pulse Ox O2 Delivery O2 Flow Rate FiO2 05/23/24 15:13 100 85/42 98 Facial BiPAP Mask 40 05/23/24 14:32 23 05/23/24 12:00 97.7 97.7 05/23/24 10:00 2.0 Total Intake and Output 05/22/24 05/22/24 05/23/24 15:00 23:00 07:00 Intake Total 950 ml 2440 ml 350 ml Output Total 2000 ml 1800 ml Balance 950 ml 440 ml -1450 ml medications Current Medications Medications Dose Ordered Sig/Alessia Route Start Time Stop Time Status Last Admin Dose Admin Acetaminophen 650 mg Q6HPRN PRN PO 05/18/24 20:15 Acetaminophen/ Hydrocodone Bitart 1 tab Q6HPRN PRN PO 05/18/24 20:15 05/20/24 11:25 1 TAB Morphine Sulfate 2 mg Q6HPRN PRN IV 05/18/24 20:15 05/23/24 14:02 2 MG Ondansetron HCl 4 mg Q6HPRN PRN IV 05/18/24 20:15 Ceftriaxone Sodium 50 ml @ 100 mls/hr DAILY@09 IV 05/21/24 09:00 05/23/24 08:32 100 MLS/HR Guaifenesin 200 mg Q4HP PRN PO 05/20/24 17:45 05/20/24 22:52 200 MG Pantoprazole Sodium 40 mg BID IV 05/21/24 22:00 05/23/24 09:16 40 MG Levofloxacin 100 ml @ 100 mls/hr DAILY@1000,1030 IV 05/23/24 10:00 05/23/24 09:50 100 MLS/HR Lactulose 30 ml Q6HR PO 05/22/24 18:00 05/23/24 11:24 30 ML Albuterol 2.5 mg Q6HWA NEB 05/22/24 18:00 05/23/24 12:44 2.5 MG Ipratropium [place] 0.5 mg Q6HWA NEB 05/22/24 18:00 05/23/24 12:44 0.5 MG Methylprednisolone Sodium Succinate 40 mg Q8H IV 05/22/24 20:00 05/23/24 09:16 40 MG Acetylcysteine 200 mg Q6HWA [facility] 05/22/24 18:00 05/23/24 12:44 200 MG objective Appears tired and restless. HEENT neck supple no JVD positive jaundice. Heart regular rate and rhythm S1 and S2. Lungs without rales wheezes. Abdomen is tympanic to palpation slightly distended positive active bowel sounds. Extremities no edema. laboratory and microbiology Laboratory Tests 05/23/24 05:00 Test 05/23/24 05:00 Range/Units Serum Glucose 89 74-106 mg/dL Assessment/Plan Patient appears to be slowly declining with more restlessness and confusion today. 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 His MRI of the abdomen suggested mass in his colon with a possible colon cancer. Patient is acidotic from liver failure. Given he has shallow respirations we will start him on BiPAP. Give him two amps of bicarb to correct the acidosis. Otherwise continue rest of supportive care and treatment as he is on. I have talked to both the nephew's over the phone Koko as well as Mike regarding patient's condition and pathology reports and diagnosis and prognosis. Based on this Mike PAYNE has decided to keep patient comfortable with the DNR DNI status. Apparently he talked to patient prior to coming to the hospital regarding his goals of care and wishes. Patient apparently expressed to Mike he does not want any aggressive care or treatments chemoradiation even he is told to have cancer. Overall given his poor prognosis I will have hospice evaluation. Otherwise further clinical management per clinical course. Discussed with the patient's nurse at bedside as well. Problems(with codes): (1) Hypovolemia (2) Lactic acidosis (3) Liver disease (4) Sepsis (5) Liver masses (6) Transaminitis Dietary Evaluation Review Comments: Advance to diet when medically feasible. follow up in 3-5 days Expected Outcomes/Goals: Maintain weight. Plan discussed with: Other ARABELLA NOE MD May 23, 2024 16:00
[2024-05-23] MEDS: SODIUM BICARB 8.4% 50Meq/50ml SYR Vial IV ONE (16:06)
--- NOTE | 2024-05-23 19:11 | DVHPN2 ---
Progress Note - Dictate Date Seen: May 23, 2024 Medical Necessity Reason Pt with a Central, PICC or Fol: No Subjective No further GI bleeding H&H is stable Patient's clinical condition deteriorated with bilateral rhonchi Patient required to be put on BiPAP and he is more restless and had hypotension vital signs Vital Sign Date Time Temp Pulse Resp B/P (MAP) Pulse Ox O2 Delivery O2 Flow Rate FiO2 05/23/24 18:06 93 71/35 97 Facial BiPAP Mask 40 05/23/24 18:00 24 05/23/24 16:00 97.2 97.2 05/23/24 12:44 2 Total Intake and Output 05/22/24 05/22/24 05/23/24 15:00 23:00 07:00 Intake Total 950 ml 2440 ml 350 ml Output Total 2000 ml 1800 ml Balance 950 ml 440 ml -1450 ml medications Current Medications Medications Dose Ordered Sig/Alessia Route Start Time Stop Time Status Last Admin Dose Admin Acetaminophen 650 mg Q6HPRN PRN PO 05/18/24 20:15 Acetaminophen/ Hydrocodone Bitart 1 tab Q6HPRN PRN PO 05/18/24 20:15 05/20/24 11:25 1 TAB Morphine Sulfate 2 mg Q6HPRN PRN IV 05/18/24 20:15 05/23/24 14:02 2 MG Ondansetron HCl 4 mg Q6HPRN PRN IV 05/18/24 20:15 Ceftriaxone Sodium 50 ml @ 100 mls/hr DAILY@09 IV 05/21/24 09:00 05/23/24 08:32 100 MLS/HR Guaifenesin 200 mg Q4HP PRN PO 05/20/24 17:45 05/20/24 22:52 200 MG Pantoprazole Sodium 40 mg BID IV 05/21/24 22:00 05/23/24 09:16 40 MG Levofloxacin 100 ml @ 100 mls/hr DAILY@1000,1030 IV 05/23/24 10:00 05/23/24 09:50 100 MLS/HR Lactulose 30 ml Q6HR PO 05/22/24 18:00 05/23/24 11:24 30 ML Albuterol 2.5 mg Q6HWA NEB 05/22/24 18:00 05/23/24 18:05 2.5 MG Ipratropium [place] 0.5 mg Q6HWA NEB 05/22/24 18:00 05/23/24 18:05 0.5 MG Methylprednisolone Sodium Succinate 40 mg Q8H IV 05/22/24 20:00 05/23/24 09:16 40 MG Acetylcysteine 200 mg Q6HWA [facility] 05/22/24 18:00 05/23/24 18:05 200 MG objective Appears tired and restless. HEENT neck supple no JVD positive jaundice. Heart regular rate and rhythm S1 and S2. Lungs without rales wheezes. Abdomen is tympanic to palpation slightly distended positive active bowel sounds. Extremities no edema. laboratory and microbiology Laboratory Tests 05/23/24 05:00 Test 05/23/24 05:00 Range/Units Serum Glucose 89 74-106 mg/dL Problems(with codes): (1) Metastatic adenocarcinoma (2) Abnormal finding on GI tract imaging (3) Transaminitis (4) Liver masses (5) Sepsis (6) Liver disease Prognosis Patient appears to be slowly declining with more restlessness and confusion today. 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 Patient is acidotic from liver failure with shallow respirations on BiPAP. Give him two amps of bicarb to correct the acidosis. Otherwise continue rest of supportive care and treatment as he is on. I have Mike PAYNE has decided to keep patient comfortable with the DNR DNI status based on patient's expressed patient was Overall given his poor prognosis I will have hospice evaluation. Dietary Evaluation Review Comments: Advance to diet when medically feasible. follow up in 3-5 days Expected Outcomes/Goals: Maintain weight. Plan discussed with: Other (CRISTINA nurse) KAROLINA LEONE MD May 23, 2024 19:11
== END 2024-05-23 20:45 | DRG 871 ==
LOC: ER 16:36 → TELE 20:07 → TELE-WESTW 05-19 02:06 → DOU IN ICU 05-21 18:08
PROVIDERS: ADMIT Hospitalist; ATTEND Hospitalist
PROC: 0FB03ZX Excision of Liver, Percutaneous Approach, Diagnostic (ICD-10-PCS; 2024-05-19)
PROC: 5A09357 Assistance with Respiratory Ventilation, Less than 24 Consecutive Hours, Continuous Positive Airway Pressure (ICD-10-PCS; principal; 2024-05-23)
DX: A41.9 Sepsis, unspecified organism (principal); G93.41 Metabolic encephalopathy; J96.01 Acute respiratory failure with hypoxia; E87.20 Acidosis, unspecified; J44.1 Chronic obstructive pulmonary disease with (acute) exacerbation; J98.11 Atelectasis; J90 Pleural effusion, not elsewhere classified; D68.9 Coagulation defect, unspecified; E72.20 Disorder of urea cycle metabolism, unspecified; Z66 Do not resuscitate; E03.9 Hypothyroidism, unspecified; K72.90 Hepatic failure, unspecified without coma; E86.1 Hypovolemia; J43.9 Emphysema, unspecified; R16.0 Hepatomegaly, not elsewhere classified; E80.6 Other disorders of bilirubin metabolism; E78.5 Hyperlipidemia, unspecified; F17.210 Nicotine dependence, cigarettes, uncomplicated; D69.6 Thrombocytopenia, unspecified; Z85.118 Personal history of other malignant neoplasm of bronchus and lung
CPT/HCPCS: 31720; 36415; 36600; 70551; 71045; 71260; 74176; 74183; 76705; 76942; 80048; 80053; 80074; 80307; 81001; 82140; 82248; 82378; 82805; 82962; 83605; 83735; 83880; 84100; 84484; 85007; 85014; 85018; 85027; 85610; 86301; 86304; 87040; 87070; 87077; 87081; 87086; 87186; 87205; 92610; 93005; 93306; 94640; 94660; 94668; 97163; G0378; J2003; J2250; J2405; J2470; J2543